=== PATIENT | male | born 1980 | race Caucasian/White ===

== ENCOUNTER 2017-01-07 17:32 | Emergency (ER) | payer MEDICARE, MEDICAID ==
[~2017-01-07] VITALS: Ht 180.3 cm; Wt 74.1 kg
[~2017-01-07 17:32] MED LIST: AMOXICILLIN 8751 TAB PO; APRESOLINE50 MG PO; ASPI325T6 PO; ASPIRIN 32325 MG/TAB PO; ATARAX 25MG25 MG/TAB PO; BACTRIM 400 MG-1 TAB PO; BACTRIM DS 8001 TA1 PO; BACTRIM DS 8001 TAB PO; BENADRYL25 M2 PO; BENTYL 10MG10 MG/CAP PO; CATAPRES 0.1MG0.1 MG PO; CELEXA 20MG20 MG/TAB PO; CEPHALEXIN500 M1 PO; CHANTIX 1MG1 MG PO; CIPRO 500MG TA500 MG PO; CLEOCIN HC150 MG/CAP PO; COLACE 100100 MG/CAP PO; CUBICIN 500MG500 MG IV; CYMBALTA 60MG60 MG PO; DAZIDOX10 MG PO; DEMADEX100 MG PO; DESYREL 50MG50 MG PO; DOXYCYCLINE 10100 MG PO; EXCEDRIN1 TAB PO; FENTANYL 50MCG TD; FERROUS SU325 MG/TAB PO; FLAGYL500 MG PO; FLEXERIL 1010 MG/TAB PO; FLEXERIL10 MG PO; INSLANT SQ; INSULIN HUMA100 U/ML IJ; IRON325 M1 PO; K-DUR 10 MEQ T10 MEQ PO; LANTUS SOLOS100 U/ML SC; LANTUS100 U/ML; LANTUS100 U/ML SC; LEVAQUIN 2250 MG/TAB PO; LEVAQUIN 5500 MG/TA1 PO; LEVAQUIN 750MG750 M1 PO; LEVEMIR SQ; LEVEMIR100 U/ML SQ; LIPITOR20 MG PO; LOPRESSOR 225 MG/TAB PO; LOPRESSOR 550 MG/TAB PO; LORTAB 10/500 51 TAB PO; LOVENOX 3030 MG/0.3 SQ; LYRICA 50MG CAP50 MG PO; METHADONE H10 MG/TAB PO; NAPROSYN PO; NAPROSYN500 MG PO; NEURONTIN100 MG/CAP PO; NEURONTIN400 MG/CAP PO; NEURONTIN600 MG/TAB PO; NORCO 325 MG-101 TAB PO; NORCO 325 MG-51 TAB PO; NORCO 325 MG-7.1 TAB PO; NORVASC 10MG10 MG PO; NORVASC 5MG5 MG/TAB PO; NOVLOG SC; NOVLOG SQ; NOVOLOG 100U100 U/M1 SC; NOVOLOG 100U100 U/M1 SQ; NOVOLOG 100U100 U/ML SQ; OXYCONTIN 10MG10 MG PO; OXYCONTIN40 MG PO; PEN-VEE K500 MG PO; PERCOCET 325 MG1 TA2 PO; PERCOCET 325 MG1 TAB PO; PERCOCET 5/321 UDTAB PO; PERCR 7.5 PO; PHENERGAN 25 TA25 MG PO; PHENERGAN25 MG RC; PHENERGAN25 MG/ML IM; PLAVIX 75MG TAB75 MG PO; PREDNISONE20 MG PO; PRIL40 PO; PRILOSEC 20MG20 MG PO; PRINIVIL10 MG PO; PRINIVIL20 MG PO; PROMETHAZINE12.5 M5 PO; PROZAC20 MG PO; PYRIDIUM200 M1; PYRIDIUM200 M1 PO; REGLAN 10MG10 MG/TAB PO; RIFADIN300 MG PO; ROBAXIN 75750 MG/TAB PO; ROXICODONE 55 MG/TAB PO; ROXICODONE15 MG PO; SEPTRA DS 8001 TAB PO; TAMIFLU 75MG75 MG PO; TENORMIN 2525 MG/TAB PO; TENORMIN 5050 MG/TAB PO; TYLENOL 325MG325 MG PO; ULTRAM 50MG TAB50 MG PO; VENTOLIN0.09 MG IH; WELLBUTRIN SR100 M1 PO; ZESTRIL 20MG TA20 MG PO; ZOFRAN 4MG T4 MG/TAB PO; ZOFRAN ODT4 MG PO; ZYRTEC 10MG10 MG PO
[2017-01-07 17:35] VITALS: TEMP 97.8
[2017-01-07] MEDS ORDERED: MS CONTIN 115 MG/TAB PO (17:53)
[2017-01-07] MEDS ORDERED: LEXAPRO 10MG10 MG PO (17:53)
[2017-01-07] MEDS ORDERED: PROTONIX 40MG T40 MG PO (17:53)
[2017-01-07] MEDS ORDERED: FOLIC ACID 11 MG/TA1 PO (17:54)
[2017-01-07] MEDS ORDERED: LIPITOR 80MG80 MG PO (17:54)
[2017-01-07] MEDS ORDERED: HYDRALAZINE HC100 MG PO (17:54)
[2017-01-07] MEDS ORDERED: OSCAL 500 TAB500 MG PO (17:54)
[2017-01-07] MEDS ORDERED: COREG 25MG25 MG/TAB PO (17:58)
[2017-01-07] MEDS ORDERED: PLAVIX 75MG TAB75 MG PO (17:58)
[2017-01-07] MEDS ORDERED: ASPIRIN 81M81 MG/TA2 PO (17:58)
[2017-01-07] MEDS ORDERED: SENOKOT S 50 MG1 TAB PO (17:58)
[2017-01-07] MEDS ORDERED: ROXICODONE15 MG PO (17:59)
[2017-01-07] MEDS ORDERED: FERROUS SU325 MG/TAB PO (17:59)
[2017-01-07] MEDS ORDERED: CATAPRES 0.1MG0.1 MG PO (17:59)
[2017-01-07] MEDS ORDERED: SEROQUEL50 MG PO (17:59)
[2017-01-07] MEDS ORDERED: ALDACTONE 25MG25 M1 PO (18:00)
[2017-01-07 18:18] LABS: BASO # 0.1 (0.0-0.2); BASO % 0.6 % (0.0-2.0); EOS # 0.4 (0.0-0.7); EOS % 4.9 % (0-4.0); GRAN # 6.1 (1.4-6.5); GRAN % 68.3 % (42.2-75.2); LYMPH # 1.7 (1.2-3.4); LYMPH % 18.5 % (20.0-51.0); MEAN CELL VOLUME 86 fl (80.0-100.0); MEAN CORPUSCULAR HGB CONC 33 g/dl (33.0-37.0); MEAN PLATELET VOLUME 9.2 fl (7.4-10.4); MONO # 0.7 (0.1-0.6); MONO % 7.5 % (1.7-9.3); PLATELET COUNT 339 K/mm3 (130-400); RED BLOOD COUNT 3.44 M/mm3 (4.20-5.60); REDCELL DISTRIBUTION WIDTH-CV 13.5 % (11.5-14.5)
[2017-01-07 18:20] LABS: HEMATOCRIT 29.4 % (42.0-52.0); HEMOGLOBIN 9.6 g/dl (13.5-18.0); MEAN CORPUSCULAR HEMOGLOBIN 28 pg (27.0-31.0)
[2017-01-07 18:21] LABS: INR 1.2 (0.8-3.0); PROTHROMBIN TIME 13.6 SECONDS (9.7-12.8)
[2017-01-07 18:26] LABS: ADJUSTED CALCIUM 9.9 mg/dL (8.4-10.2); ALANINE AMINOTRANSFERASE 20 U/L (21-72); ALBUMIN 3.1 gm/dL (3.5-5.0); ALKALINE PHOSPHATASE 83 U/L (50-136); ANION GAP 9 mmol/L (7-16); BILIRUBIN,TOTAL 0.5 mg/dL (0.0-1.0); BLOOD UREA NITROGEN 45 mg/dL (9-20); C-REACTIVE PROTEIN 7.8 mg/dL (0.0-0.9); CALCIUM 9.2 mg/dL (8.4-10.2); CARBON DIOXIDE 21 mmol/L (22-30); CHLORIDE 100 mmol/L (98-107); CREATININE, serum 2.76 mg/dL (0.66-1.25); GLUCOSE 108 mg/dL (74-106); PHOSPHOROUS 5.1 mg/dL (2.5-4.5); POTASSIUM 4.6 mmol/L (3.4-5.0); SODIUM 129 mmol/L (137-145); TOTAL PROTEIN 6.7 gm/dL (6.4-8.2)
[2017-01-07 18:39] LABS: TROPONIN-I < 0.012 ng/mL (0.000-0.034)
[2017-01-07 20:45] VITALS: BP 161/90; PULSE 73
[2017-06-17] MEDS ORDERED: MINOXIDIL 10 PO (14:18)
[2017-06-17] MEDS ORDERED: LASIX 40MG TABL40 MG PO (14:18)
[2017-06-17] MEDS ORDERED: ABILIFY5 MG PO (14:19)
[2017-06-17] MEDS ORDERED: THORAZINE 225 MG/TAB PO (14:19)
[2017-06-17] MEDS ORDERED: MS CONTIN 330 MG/TAB PO (14:19)
[2017-06-17] MEDS ORDERED: HETLIOZ20 MG PO (14:20)
[2017-06-17] MEDS ORDERED: MELATONIN5 M1 PO (14:20)
[2017-06-17] MEDS ORDERED: BUSPAR5 MG PO (14:21)
[2017-06-17] MEDS ORDERED: REGLAN 10MG10 MG/TAB PO (14:21)
[2017-06-17] MEDS ORDERED: NATURAL IRON65 MG (14:22)
[2017-06-17] MEDS ORDERED: SEROQUEL50 MG PO (14:22)
[2017-06-17] MEDS ORDERED: CALCITRIOL PO (14:24)
[2017-06-17] MEDS ORDERED: BRINTELLIX20 PO (14:24)
[2017-06-17] MEDS ORDERED: ZOFRAN 4MG T4 MG/TAB PO (14:25)
[2017-06-17] MEDS ORDERED: CHANTIX START M1 TAB PO (14:25)
[2017-06-17] MEDS ORDERED: APRESOLINE 10MG10 MG PO (14:26)
[2017-06-17] MEDS ORDERED: KLONOPIN 0.5MG0.5 MG PO (14:29)
[2017-06-17] MEDS ORDERED: CATAPRES 0.1MG0.1 MG PO (14:30)
[2017-07-21] MEDS ORDERED: HYDRALAZINE HC100 MG PO (13:33)
[2017-07-21] MEDS ORDERED: MELATONIN1 MG PO (13:33)
[2017-07-21] MEDS ORDERED: FOLIC ACID 11 MG/TA1 PO (13:34)
[2017-07-21] MEDS ORDERED: IRON 27 MG PO (13:35)
[2017-07-21] MEDS ORDERED: DULCOLAX S10 MG/SUPP RC (13:35)
[2017-07-21] MEDS ORDERED: TYLENOL 325MG325 MG PO (13:35)
[2017-07-21] MEDS ORDERED: THORAZINE 225 MG/TAB PO (13:36)
[2017-07-21] MEDS ORDERED: COLACE 100100 MG/CAP PO (13:37)
[2017-07-21] MEDS ORDERED: BUSPAR5 MG PO (13:38)
[2017-07-21] MEDS ORDERED: LEXAPRO20 MG PO (13:38)
[2017-07-21] MEDS ORDERED: MIRALAX PA17 GM/Dose PO (13:43)
[2017-07-21] MEDS ORDERED: SENOKOT8.6 MG PO (13:44)
[2017-07-21] MEDS ORDERED: ALDACTONE 25MG25 M1 PO (13:44)
[2017-07-21] MEDS ORDERED: FERROUS GL325 MG/TAB PO (13:45)
== END 2017-01-07 20:49 | disposition home or self-care (01) ==
LOC: COL.ER 17:32
PROVIDERS: Family Medicine
DX: I12.9 Hypertensive chronic kidney disease with stage 1 through stage 4 chronic kidney disease, or unspecified chronic kidney disease (principal); N18.4 Chronic kidney disease, stage 4 (severe); E10.22 Type 1 diabetes mellitus with diabetic chronic kidney disease; Z89.511 Acquired absence of right leg below knee; Z79.02 Long term (current) use of antithrombotics/antiplatelets; R40.0 Somnolence

== ENCOUNTER → 2017-05-02 | Outpatient (CLI) | payer MEDICARE, MEDICAID ==
[~2017-05-02] MED LIST changes: +ABILIFY5 MG PO; +ALDACTONE 25MG25 M1 PO; +APRESOLINE 10MG10 MG PO; +ASPIRIN 81M81 MG/TA2 PO; +BRINTELLIX20 PO; +BUSPAR5 MG PO; +CALCITRIOL PO; +CHANTIX START M1 TAB PO; +COREG 25MG25 MG/TAB PO; +DULCOLAX S10 MG/SUPP RC; +FERROUS GL325 MG/TAB PO; +FLOMAX 0.40.4 MG/CAP PO; +FOLIC ACID 11 MG/TA1 PO; +HETLIOZ20 MG PO; +HYDRALAZINE HC100 MG PO; +IRON 27 MG PO; +KLONOPIN 0.5MG0.5 MG PO; +LANTUS SOLOS100 U/ML SQ; +LASIX 40MG TABL40 MG PO; +LEXAPRO 10MG10 MG PO; +LEXAPRO20 MG PO; +LIPITOR 80MG80 MG PO; +MELATONIN1 MG PO; +MELATONIN5 M1 PO; +MINOXIDIL 10 PO; +MIRALAX PA17 GM/Dose PO; +MS CONTIN 115 MG/TAB PO; +MS CONTIN 330 MG/TAB PO; +NATURAL IRON65 MG; +NOVOLOG FLEX100 U/ML SQ; +OSCAL 500 TAB500 MG PO; +PROTONIX 40MG T40 MG PO; +SENOKOT S 50 MG1 TAB PO; +SENOKOT8.6 MG PO; +SEROQUEL50 MG PO; +THORAZINE 225 MG/TAB PO
== END ==
LOC: BHSO 12:44
DX: F06.32 Mood disorder due to known physiological condition with major depressive-like episode (principal)
CPT/HCPCS: 90791-AI

== ENCOUNTER → 2017-06-17 | Outpatient (CLI) | payer MEDICARE, MEDICAID ==
[~2017-06-17] VITALS: Ht 180.3 cm; Wt 81.4 kg
[2017-06-17 14:04] VITALS: BP 142/67; PULSE 86; TEMP 98.4
== END ==
LOC: EUO 06-16 14:00
DX: N18.4 Chronic kidney disease, stage 4 (severe) (principal); D63.1 Anemia in chronic kidney disease; Z79.899 Other long term (current) drug therapy
CPT/HCPCS: J0881

== ENCOUNTER → 2017-06-30 | Outpatient (CLI) | payer MEDICARE, MEDICAID | LOC: BHSO 15:02 | DX: F06.32 Mood disorder due to known physiological condition with major depressive-like episode (principal) ==

== ENCOUNTER 2017-07-08 14:21 | Emergency (ER) | payer MEDICARE, MEDICAID ==
[~2017-07-08] VITALS: Ht 175.3 cm; Wt 77.3 kg
[~2017-07-08 14:21] MED LIST changes: -DULCOLAX S10 MG/SUPP RC; -FERROUS GL325 MG/TAB PO; -FLOMAX 0.40.4 MG/CAP PO; -IRON 27 MG PO; -LANTUS SOLOS100 U/ML SQ; -LEXAPRO20 MG PO; -MELATONIN1 MG PO; -MIRALAX PA17 GM/Dose PO; -NOVOLOG FLEX100 U/ML SQ; -SENOKOT8.6 MG PO
[2017-07-08 14:23] VITALS: TEMP 97.9
[2017-07-08] MEDS ORDERED: NOVOLOG FLEX100 U/ML SQ (14:49)
[2017-07-08] MEDS ORDERED: LANTUS SOLOS100 U/ML SQ (14:49)
[2017-07-08 15:22] LABS: BASO # 0.1 (0.0-0.2); EOS # 0.5 (0.0-0.7); EOS % 7.9 % (0-4.0); GRAN # 4.1 (1.4-6.5); GRAN % 66.4 % (42.2-75.2); LYMPH # 1.1 (1.2-3.4); LYMPH % 17.3 % (20.0-51.0); MEAN CELL VOLUME 85 fl (80.0-100.0); MEAN CORPUSCULAR HGB CONC 35 g/dl (33.0-37.0); MEAN PLATELET VOLUME 9.5 fl (7.4-10.4); MONO # 0.4 (0.1-0.6); MONO % 7.2 % (1.7-9.3); PLATELET COUNT 211 K/mm3 (130-400); RED BLOOD COUNT 3.61 M/mm3 (4.20-5.60); REDCELL DISTRIBUTION WIDTH-CV 13.2 % (11.5-14.5); WHITE BLOOD COUNT 6.1 K/mm3 (4.8-10.8)
[2017-07-08 15:25] LABS: HEMATOCRIT 30.5 % (42.0-52.0); HEMOGLOBIN 10.6 g/dl (13.5-18.0); MEAN CORPUSCULAR HEMOGLOBIN 29 pg (27.0-31.0)
[2017-07-08 15:28] LABS: VENOUS BLOOD GAS BE 2.2 (-4-4); VENOUS BLOOD GAS SAO2 66.8 % (60-80)
[2017-07-08 15:29] LABS: VENOUS BLOOD GAS SITE VENIPUNCTURE
[2017-07-08 15:39] LABS: ADJUSTED CALCIUM 9.2 mg/dL (8.4-10.2); ALANINE AMINOTRANSFERASE 36 U/L (21-72); ALKALINE PHOSPHATASE 77 U/L (50-136); ANION GAP 11 mmol/L (7-16); BILIRUBIN,TOTAL 0.5 mg/dL (0.0-1.0); BLOOD UREA NITROGEN 45 mg/dL (9-20); CALCIUM 9.2 mg/dL (8.4-10.2); CARBON DIOXIDE 25 mmol/L (22-30); CHLORIDE 99 mmol/L (98-107); CREATININE, serum 3.31 mg/dL (0.66-1.25); GLUCOSE 145 mg/dL (74-106); LIPASE 91 U/L (23-300); POTASSIUM 4.2 mmol/L (3.4-5.0); SODIUM 135 mmol/L (137-145); TOTAL PROTEIN 6.9 gm/dL (6.4-8.2)
[2017-07-08 15:41] LABS: C-REACTIVE PROTEIN < 0.5 mg/dL (0.0-0.9)
[2017-07-08 16:01] LABS: TROPONIN-I < 0.012 ng/mL (0.000-0.034)
[2017-07-08 16:40] LABS: PH 7 (5-8); SQUAMOUS EPITHELIAL None Seen /hpf; URINE APPEARANCE Clear; URINE BACTERIA None Seen /hpf; URINE BILIRUBIN Negative (NEGATIVE); URINE BLOOD Negative (NEGATIVE); URINE COLOR Yellow; URINE GLUCOSE 1+ (NEGATIVE); URINE KETONE Negative (NEGATIVE); URINE RBC 0-2 /hpf; URINE UROBILINOGEN Negative (NEGATIVE); URINE WBC 0-2 /hpf
[2017-07-08 18:44] VITALS: BP 185/109; PULSE 92
[2017-07-08] MEDS ORDERED: FLOMAX 0.40.4 MG/CAP PO (18:53)
[2017-07-21] MEDS ORDERED: HYDRALAZINE HC100 MG PO (13:33)
[2017-07-21] MEDS ORDERED: MELATONIN1 MG PO (13:33)
[2017-07-21] MEDS ORDERED: FOLIC ACID 11 MG/TA1 PO (13:34)
[2017-07-21] MEDS ORDERED: TYLENOL 325MG325 MG PO (13:35)
[2017-07-21] MEDS ORDERED: IRON 27 MG PO (13:35)
[2017-07-21] MEDS ORDERED: DULCOLAX S10 MG/SUPP RC (13:35)
[2017-07-21] MEDS ORDERED: THORAZINE 225 MG/TAB PO (13:36)
[2017-07-21] MEDS ORDERED: COLACE 100100 MG/CAP PO (13:37)
[2017-07-21] MEDS ORDERED: LEXAPRO20 MG PO (13:38)
[2017-07-21] MEDS ORDERED: BUSPAR5 MG PO (13:38)
[2017-07-21] MEDS ORDERED: MIRALAX PA17 GM/Dose PO (13:43)
[2017-07-21] MEDS ORDERED: ALDACTONE 25MG25 M1 PO (13:44)
[2017-07-21] MEDS ORDERED: SENOKOT8.6 MG PO (13:44)
[2017-07-21] MEDS ORDERED: FERROUS GL325 MG/TAB PO (13:45)
== END 2017-07-08 19:15 | disposition home or self-care (01) ==
LOC: COL.ER 14:21
PROVIDERS: Emergency Medicine
DX: N19 Unspecified kidney failure (principal); K59.00 Constipation, unspecified; E10.9 Type 1 diabetes mellitus without complications; I10 Essential (primary) hypertension; E78.5 Hyperlipidemia, unspecified; K21.9 Gastro-esophageal reflux disease without esophagitis; F32.9 Major depressive disorder, single episode, unspecified; I69.398 Other sequelae of cerebral infarction; H54.0 Blindness, both eyes; Z89.511 Acquired absence of right leg below knee; Z90.49 Acquired absence of other specified parts of digestive tract; Z87.891 Personal history of nicotine dependence; Z79.82 Long term (current) use of aspirin
CPT/HCPCS: J1170; J2405; J7030

== ENCOUNTER 2017-07-15 12:51 | Emergency (ER) | payer MEDICARE, MEDICAID ==
[~2017-07-15] VITALS: Ht 177.8 cm; Wt 77.3 kg
[~2017-07-15 12:51] MED LIST changes: +FLOMAX 0.40.4 MG/CAP PO; +LANTUS SOLOS100 U/ML SQ; +NOVOLOG FLEX100 U/ML SQ
[2017-07-15 12:53] VITALS: TEMP 98.6
[2017-07-15 15:24] LABS: BASO % 0.3 % (0.0-2.0); EOS # 0.7 (0.0-0.7); EOS % 5.2 % (0-4.0); GRAN # 10.1 (1.4-6.5); GRAN % 77.8 % (42.2-75.2); LYMPH # 1.3 (1.2-3.4); LYMPH % 10.1 % (20.0-51.0); MEAN CELL VOLUME 87 fl (80.0-100.0); MEAN CORPUSCULAR HGB CONC 34 g/dl (33.0-37.0); MEAN PLATELET VOLUME 10.1 fl (7.4-10.4); MONO # 0.8 (0.1-0.6); MONO % 6.1 % (1.7-9.3); PLATELET COUNT 175 K/mm3 (130-400); RED BLOOD COUNT 2.95 M/mm3 (4.20-5.60); REDCELL DISTRIBUTION WIDTH-CV 13.4 % (11.5-14.5)
[2017-07-15 15:32] LABS: HEMATOCRIT 25.7 % (42.0-52.0); HEMOGLOBIN 8.8 g/dl (13.5-18.0); MEAN CORPUSCULAR HEMOGLOBIN 30 pg (27.0-31.0)
[2017-07-15 15:34] LABS: ADJUSTED CALCIUM 8.9 mg/dL (8.4-10.2); BILIRUBIN,TOTAL 0.4 mg/dL (0.0-1.0); CALCIUM 8.9 mg/dL (8.4-10.2); CREATININE, serum 2.7 mg/dL (0.66-1.25); POTASSIUM 4.9 mmol/L (3.4-5.0); TOTAL PROTEIN 6.9 gm/dL (6.4-8.2)
[2017-07-15 16:15] LABS: C-REACTIVE PROTEIN 11.8 mg/dL (0.0-0.9)
[2017-07-15] MEDS ORDERED: LEVAQUIN 750MG750 M1 PO (17:05)
[2017-07-15 17:13] VITALS: BP 182/98; PULSE 80
[2017-07-21] MEDS ORDERED: MELATONIN1 MG PO (13:33)
[2017-07-21] MEDS ORDERED: HYDRALAZINE HC100 MG PO (13:33)
[2017-07-21] MEDS ORDERED: FOLIC ACID 11 MG/TA1 PO (13:34)
[2017-07-21] MEDS ORDERED: TYLENOL 325MG325 MG PO (13:35)
[2017-07-21] MEDS ORDERED: IRON 27 MG PO (13:35)
[2017-07-21] MEDS ORDERED: DULCOLAX S10 MG/SUPP RC (13:35)
[2017-07-21] MEDS ORDERED: THORAZINE 225 MG/TAB PO (13:36)
[2017-07-21] MEDS ORDERED: COLACE 100100 MG/CAP PO (13:37)
[2017-07-21] MEDS ORDERED: BUSPAR5 MG PO (13:38)
[2017-07-21] MEDS ORDERED: LEXAPRO20 MG PO (13:38)
[2017-07-21] MEDS ORDERED: MIRALAX PA17 GM/Dose PO (13:43)
[2017-07-21] MEDS ORDERED: ALDACTONE 25MG25 M1 PO (13:44)
[2017-07-21] MEDS ORDERED: SENOKOT8.6 MG PO (13:44)
[2017-07-21] MEDS ORDERED: FERROUS GL325 MG/TAB PO (13:45)
== END 2017-07-15 17:15 | disposition home or self-care (01) ==
LOC: COL.ER 12:51
PROVIDERS: Nurse Practitioner
DX: J84.9 Interstitial pulmonary disease, unspecified (principal); E87.1 Hypo-osmolality and hyponatremia; M54.2 Cervicalgia; G89.29 Other chronic pain; E10.10 Type 1 diabetes mellitus with ketoacidosis without coma; F32.9 Major depressive disorder, single episode, unspecified; F17.210 Nicotine dependence, cigarettes, uncomplicated; Z89.421 Acquired absence of other right toe(s); Z79.82 Long term (current) use of aspirin; Z79.4 Long term (current) use of insulin

== ENCOUNTER 2017-09-27 02:55 | Emergency (ER) | payer MEDICARE, MEDICAID ==
[~2017-09-27] VITALS: Ht 180.3 cm; Wt 77.3 kg
[~2017-09-27 02:55] MED LIST changes: +DULCOLAX S10 MG/SUPP RC; +FERROUS GL325 MG/TAB PO; +IRON 27 MG PO; +LEXAPRO20 MG PO; +MELATONIN1 MG PO; +MIRALAX PA17 GM/Dose PO; +SENOKOT8.6 MG PO
[2017-09-27 03:01] VITALS: TEMP 97.3
[2017-09-27 03:42] LABS: BASO # 0.1 (0.0-0.2); BASO % 0.6 % (0.0-2.0); EOS # 0.9 (0.0-0.7); EOS % 4.5 % (0-4.0); GRAN # 15.1 (1.4-6.5); GRAN % 79.2 % (42.2-75.2); LYMPH # 1.7 (1.2-3.4); LYMPH % 8.9 % (20.0-51.0); MEAN CELL VOLUME 91 fl (80.0-100.0); MEAN CORPUSCULAR HGB CONC 34 g/dl (33.0-37.0); MONO # 1.2 (0.1-0.6); MONO % 6.3 % (1.7-9.3); PLATELET COUNT 206 K/mm3 (130-400); RED BLOOD COUNT 3.28 M/mm3 (4.20-5.60); WHITE BLOOD COUNT 19.1 K/mm3 (4.8-10.8)
[2017-09-27 03:43] LABS: HEMATOCRIT 29.8 % (42.0-52.0); HEMOGLOBIN 10.1 g/dl (13.5-18.0); MEAN CORPUSCULAR HEMOGLOBIN 31 pg (27.0-31.0)
[2017-09-27 03:55] LABS: ADJUSTED CALCIUM 8.9 mg/dL (8.4-10.2); ALBUMIN 4.3 gm/dL (3.5-5.0); BILIRUBIN,TOTAL 0.4 mg/dL (0.0-1.0); CALCIUM 9.1 mg/dL (8.4-10.2); CREATININE, serum 2.51 mg/dL (0.66-1.25); MAGNESIUM 2.3 mg/dL (1.6-2.3); PHOSPHOROUS 4.5 mg/dL (2.5-4.5); POTASSIUM 3.3 mmol/L (3.4-5.0); TOTAL PROTEIN 6.8 gm/dL (6.4-8.2)
[2017-09-27 06:15] VITALS: BP 144/91; PULSE 70
== END 2017-09-27 06:20 | disposition home or self-care (01) ==
LOC: COL.ER 02:55
PROVIDERS: Emergency Medicine
DX: E10.649 Type 1 diabetes mellitus with hypoglycemia without coma (principal); E10.22 Type 1 diabetes mellitus with diabetic chronic kidney disease; N18.9 Chronic kidney disease, unspecified; Z89.511 Acquired absence of right leg below knee; Z79.82 Long term (current) use of aspirin

== ENCOUNTER 2018-01-02 15:19 | Emergency (ER) | payer MEDICARE, MEDICAID ==
[~2018-01-02] VITALS: Ht 177.8 cm; Wt 81.8 kg
[2018-01-02 15:47] VITALS: TEMP 97.8
[2018-01-02] MEDS ORDERED: CEPHALEXIN500 M1 PO (17:33)
[2018-01-02] MEDS ORDERED: BACTRIM DS 8001 TAB PO (17:33)
[2018-01-02 17:54] VITALS: BP 121/77; PULSE 90
== END 2018-01-02 17:56 | disposition home or self-care (01) ==
LOC: COL.ER 15:19
DX: L03.116 Cellulitis of left lower limb (principal); E10.9 Type 1 diabetes mellitus without complications; I10 Essential (primary) hypertension; E78.00 Pure hypercholesterolemia, unspecified; F17.210 Nicotine dependence, cigarettes, uncomplicated; Z89.511 Acquired absence of right leg below knee; Z79.82 Long term (current) use of aspirin

== ENCOUNTER 2018-01-12 15:31 | Inpatient (IN) | payer MEDICARE, MEDICAID ==
[~2018-01-12] VITALS: Ht 170.2 cm; Wt 84.2 kg
[2018-01-12 16:13] LABS: BASO # 0.1 (0.0-0.2); BASO % 0.5 % (0.0-2.0); EOS # 0.2 (0.0-0.7); EOS % 2.3 % (0-4.0); GRAN % 84.6 % (42.2-75.2); LYMPH # 0.7 (1.2-3.4); LYMPH % 6.7 % (20.0-51.0); MEAN CELL VOLUME 88 fl (80.0-100.0); MEAN CORPUSCULAR HGB CONC 35 g/dl (33.0-37.0); MEAN PLATELET VOLUME 9.9 fl (7.4-10.4); MONO # 0.6 (0.1-0.6); MONO % 5.4 % (1.7-9.3); PLATELET COUNT 188 K/mm3 (130-400); RED BLOOD COUNT 2.49 M/mm3 (4.20-5.60); REDCELL DISTRIBUTION WIDTH-CV 12.8 % (11.5-14.5)
[2018-01-12 16:15] LABS: HEMATOCRIT 21.9 % (42.0-52.0); HEMOGLOBIN 7.6 g/dl (13.5-18.0); MEAN CORPUSCULAR HEMOGLOBIN 31 pg (27.0-31.0)
[2018-01-12 16:20] LABS: ALBUMIN 3.9 gm/dL (3.5-5.0); BILIRUBIN,TOTAL 0.3 mg/dL (0.0-1.0); C-REACTIVE PROTEIN 1.5 mg/dL (0.0-0.9); CALCIUM 8.9 mg/dL (8.4-10.2); CREATININE, serum 3.75 mg/dL (0.66-1.25)
[2018-01-12 18:40] LABS: COLLECTION METHOD CATHETER
[2018-01-12 18:58] LABS: MUCOUS Present /lpf; PH 5 (5-8); SQUAMOUS EPITHELIAL 0-2 /hpf; URINE APPEARANCE Cloudy; URINE BACTERIA Rare /hpf; URINE BILIRUBIN Negative (NEGATIVE); URINE BLOOD 1+ (NEGATIVE); URINE COLOR Yellow; URINE GLUCOSE 1+ (NEGATIVE); URINE KETONE Negative (NEGATIVE); URINE LEUKOCYTE ESTERASE Negative (NEGATIVE); URINE NITRATE Negative (NEGATIVE); URINE PROTEIN(semi-quant) 2+ (NEGATIVE); URINE UROBILINOGEN Negative (NEGATIVE)
[2018-01-12 20:38] VITALS: BP 160/67; PULSE 88; TEMP 97.7
[2018-01-12 23:51] VITALS: BP 179/81; PULSE 79; TEMP 98.1
[2018-01-13] VITALS (12 sets, daily range): BP systolic 137–176; BP diastolic 66–86; PULSE 74–80; TEMP 97.6–98.5
[2018-01-13 07:08] LABS: BASO # 0.1 (0.0-0.2); BASO % 0.9 % (0.0-2.0); EOS # 0.4 (0.0-0.7); EOS % 7.8 % (0-4.0); GRAN % 53.6 % (42.2-75.2); LYMPH # 1.5 (1.2-3.4); MEAN CELL VOLUME 89 fl (80.0-100.0); MEAN CORPUSCULAR HGB CONC 34 g/dl (33.0-37.0); MEAN PLATELET VOLUME 9.8 fl (7.4-10.4); MONO # 0.6 (0.1-0.6); MONO % 11.3 % (1.7-9.3); PLATELET COUNT 161 K/mm3 (130-400); RED BLOOD COUNT 2.21 M/mm3 (4.20-5.60); REDCELL DISTRIBUTION WIDTH-CV 12.8 % (11.5-14.5)
[2018-01-13 07:15] LABS: CALCIUM 8.6 mg/dL (8.4-10.2); CREATININE, serum 3.8 mg/dL (0.66-1.25); POTASSIUM 3.7 mmol/L (3.4-5.0)
[2018-01-13 07:19] LABS: HEMATOCRIT 19.6 % (42.0-52.0); HEMOGLOBIN 6.6 g/dl (13.5-18.0); MEAN CORPUSCULAR HEMOGLOBIN 30 pg (27.0-31.0)
[2018-01-13 19:35] LABS: HEMATOCRIT 22.6 % (42.0-52.0); HEMOGLOBIN 7.7 g/dl (13.5-18.0)
[2018-01-14 04:34] VITALS: BP 189/87; PULSE 76; TEMP 98.3
[2018-01-14 06:20] LABS: BASO % 0.7 % (0.0-2.0); EOS # 0.5 (0.0-0.7); EOS % 8.8 % (0-4.0); GRAN # 2.8 (1.4-6.5); GRAN % 52.4 % (42.2-75.2); LYMPH # 1.4 (1.2-3.4); LYMPH % 26.5 % (20.0-51.0); MEAN CELL VOLUME 87 fl (80.0-100.0); MEAN CORPUSCULAR HGB CONC 34 g/dl (33.0-37.0); MEAN PLATELET VOLUME 10.2 fl (7.4-10.4); MONO # 0.6 (0.1-0.6); MONO % 11.4 % (1.7-9.3); PLATELET COUNT 173 K/mm3 (130-400); RED BLOOD COUNT 2.62 M/mm3 (4.20-5.60); REDCELL DISTRIBUTION WIDTH-CV 13.8 % (11.5-14.5)
[2018-01-14 06:41] LABS: CALCIUM 8.2 mg/dL (8.4-10.2); CREATININE, serum 3.41 mg/dL (0.66-1.25); HEMATOCRIT 22.8 % (42.0-52.0); HEMOGLOBIN 7.7 g/dl (13.5-18.0); MEAN CORPUSCULAR HEMOGLOBIN 29 pg (27.0-31.0); POTASSIUM 3.9 mmol/L (3.4-5.0)
[2018-01-14 08:33] VITALS: BP 180/88; PULSE 78; TEMP 99.1
[2018-01-14 09:00] VITALS: BP 180/88; PULSE 78; TEMP 99.1
== END 2018-01-14 13:44 | disposition home health service (06) | DRG 699 ==
LOC: COL.ER 15:31 → MEDICAL 17:23 → EDBEDREQ 17:54 → MEDICAL 01-13 10:31
PROVIDERS: Emergency Medicine; Nurse Practitioner; Physician Assistant
DX: N31.2 Flaccid neuropathic bladder, not elsewhere classified (principal); N13.8 Other obstructive and reflux uropathy; N17.9 Acute kidney failure, unspecified; E87.1 Hypo-osmolality and hyponatremia; N13.9 Obstructive and reflux uropathy, unspecified; I12.9 Hypertensive chronic kidney disease with stage 1 through stage 4 chronic kidney disease, or unspecified chronic kidney disease; E11.22 Type 2 diabetes mellitus with diabetic chronic kidney disease; N18.3 Chronic kidney disease, stage 3 (moderate); D63.1 Anemia in chronic kidney disease; Z89.511 Acquired absence of right leg below knee; Z79.4 Long term (current) use of insulin; F17.210 Nicotine dependence, cigarettes, uncomplicated; G89.29 Other chronic pain; H54.8 Legal blindness, as defined in USA
CPT/HCPCS: 99222-AI; 99239; G0378; J0881; J1644; J1815; J7030; P9016

== ENCOUNTER 2018-01-27 20:46 | Emergency (ER) | payer MEDICARE, MEDICAID ==
[~2018-01-27] VITALS: Ht 177.8 cm; Wt 81.8 kg
[2018-01-27 20:56] VITALS: TEMP 98.6
[2018-01-27 21:50] VITALS: BP 161/97; PULSE 73
== END 2018-01-27 21:50 | disposition home or self-care (01) ==
LOC: COL.ER 20:46
DX: Z46.6 Encounter for fitting and adjustment of urinary device (principal); E10.29 Type 1 diabetes mellitus with other diabetic kidney complication; I10 Essential (primary) hypertension; N19 Unspecified kidney failure

== ENCOUNTER 2018-02-24 08:19 | Day surgery (SDC) | payer MEDICARE, MEDICAID ==
[~2018-02-24] VITALS: Ht 177.8 cm; Wt 81.8 kg
[2018-02-24] VITALS (7 sets, daily range): BP systolic 166–204; BP diastolic 77–104; PULSE 70–77; TEMP 97.9–98
[2018-02-24 09:26] LABS: BASO # 0.1 (0.0-0.2); BASO % 0.9 % (0.0-2.0); EOS # 1.5 (0.0-0.7); EOS % 15.2 % (0-4.0); GRAN # 5.5 (1.4-6.5); GRAN % 57.1 % (42.2-75.2); LYMPH # 1.9 (1.2-3.4); LYMPH % 19.3 % (20.0-51.0); MEAN CELL VOLUME 86 fl (80.0-100.0); MEAN CORPUSCULAR HGB CONC 35 g/dl (33.0-37.0); MEAN PLATELET VOLUME 10.1 fl (7.4-10.4); MONO # 0.7 (0.1-0.6); MONO % 7.3 % (1.7-9.3); PLATELET COUNT 188 K/mm3 (130-400); RED BLOOD COUNT 3.38 M/mm3 (4.20-5.60); REDCELL DISTRIBUTION WIDTH-CV 13.7 % (11.5-14.5)
[2018-02-24 09:27] LABS: HEMOGLOBIN 10.1 g/dl (13.5-18.0); MEAN CORPUSCULAR HEMOGLOBIN 30 pg (27.0-31.0)
[2018-02-24 09:30] LABS: INR 1.1 (0.8-3.0); PROTHROMBIN TIME 12.5 SECONDS (9.7-12.8)
[2018-02-24 09:33] LABS: CALCIUM 8.9 mg/dL (8.4-10.2); CREATININE, serum 2.29 mg/dL (0.66-1.25); POTASSIUM 4.1 mmol/L (3.4-5.0)
[2018-02-24] MEDS ORDERED: APRESOLINE50 MG PO (09:41)
[2018-02-24] MEDS ORDERED: PLAVIX 75MG TAB75 MG PO (09:42)
[2018-02-24] MEDS ORDERED: ASPIRIN 81M81 MG/TA2 PO (09:43)
== END 2018-02-24 14:05 | disposition home or self-care (01) ==
LOC: SDCO 08:19
PROVIDERS: Urology
DX: N31.9 Neuromuscular dysfunction of bladder, unspecified (principal); N39.46 Mixed incontinence; R33.8 Other retention of urine; Z79.01 Long term (current) use of anticoagulants; R39.14 Feeling of incomplete bladder emptying; R35.0 Frequency of micturition; E11.22 Type 2 diabetes mellitus with diabetic chronic kidney disease; I69.998 Other sequelae following unspecified cerebrovascular disease; H54.7 Unspecified visual loss; I12.9 Hypertensive chronic kidney disease with stage 1 through stage 4 chronic kidney disease, or unspecified chronic kidney disease; N18.9 Chronic kidney disease, unspecified; Z79.4 Long term (current) use of insulin; F17.210 Nicotine dependence, cigarettes, uncomplicated; Z83.3 Family history of diabetes mellitus; N52.9 Male erectile dysfunction, unspecified; Z89.611 Acquired absence of right leg above knee; F32.9 Major depressive disorder, single episode, unspecified; K21.9 Gastro-esophageal reflux disease without esophagitis; D64.9 Anemia, unspecified; Z86.14 Personal history of Methicillin resistant Staphylococcus aureus infection; Z88.1 Allergy status to other antibiotic agents; Z88.5 Allergy status to narcotic agent; R20.2 Paresthesia of skin; K44.9 Diaphragmatic hernia without obstruction or gangrene; F41.9 Anxiety disorder, unspecified; E11.40 Type 2 diabetes mellitus with diabetic neuropathy, unspecified; E11.65 Type 2 diabetes mellitus with hyperglycemia; Z96.0 Presence of urogenital implants
CPT/HCPCS: J0690; J2270; J2274; J2704; J7030; J7042

== ENCOUNTER 2018-03-14 19:43 | Inpatient (IN) | payer MEDICARE, MEDICAID ==
[2018-03-14] VITALS (13 sets, daily range): BP systolic 173; BP diastolic 81; PULSE 84; TEMP 98.5; O2SAT 93–100
[~2018-03-14] VITALS: Ht 177.8 cm; Wt 87.1 kg
[~2018-03-14 19:43] MED LIST changes: -MS CONTIN 330 MG/TAB PO; -NOVOLOG FLEX100 U/ML SQ
[2018-03-14 20:13] LABS: BASO % 0.3 % (0.0-2.0); EOS # 0.1 (0.0-0.7); EOS % 1.5 % (0-4.0); GRAN # 6.1 (1.4-6.5); GRAN % 85.3 % (42.2-75.2); LYMPH # 0.5 (1.2-3.4); MEAN CELL VOLUME 76 fl (80.0-100.0); MEAN CORPUSCULAR HGB CONC 39 g/dl (33.0-37.0); MEAN PLATELET VOLUME 9.7 fl (7.4-10.4); MONO # 0.4 (0.1-0.6); MONO % 5.6 % (1.7-9.3); PLATELET COUNT 234 K/mm3 (130-400); RED BLOOD COUNT 2.94 M/mm3 (4.20-5.60); REDCELL DISTRIBUTION WIDTH-CV 12.1 % (11.5-14.5)
[2018-03-14 20:18] LABS: ALANINE AMINOTRANSFERASE 30 U/L (21-72); ALBUMIN 3.2 gm/dL (3.5-5.0); ALKALINE PHOSPHATASE 114 U/L (50-136); ANION GAP 14 mmol/L (7-16); AST,SGOT 33 U/L (15-37); BILIRUBIN,TOTAL 0.6 mg/dL (0.0-1.0); BLOOD UREA NITROGEN 29 mg/dL (9-20); C-REACTIVE PROTEIN 6.6 mg/dL (0.0-0.9); CALCIUM 8.4 mg/dL (8.4-10.2); CARBON DIOXIDE 16 mmol/L (22-30); CREATININE, serum 2.21 mg/dL (0.66-1.25); GLUCOSE 109 mg/dL (74-106); LIPASE 22 U/L (23-300); POTASSIUM 3.4 mmol/L (3.4-5.0); TOTAL PROTEIN 6.5 gm/dL (6.4-8.2)
[2018-03-14 20:49] LABS: COLLECTION METHOD CLEAN CATCH
[2018-03-14 20:52] LABS: HEMATOCRIT 22.3 % (42.0-52.0); HEMOGLOBIN 8.6 g/dl (13.5-18.0); MEAN CORPUSCULAR HEMOGLOBIN 29 pg (27.0-31.0)
[2018-03-14 20:54] LABS: CHLORIDE 75 mmol/L (98-107); SODIUM 105 mmol/L (137-145)
[2018-03-14] MEDS ORDERED: PLAVIX 75MG TAB75 MG PO (20:55)
[2018-03-14] MEDS ORDERED: ATARAX 25MG25 MG/TAB PO (20:55)
[2018-03-14] MEDS ORDERED: LANTUS SOLOS100 U/ML SQ (20:57)
[2018-03-14 20:59] LABS: MUCOUS Present /lpf; PH 5 (5-8); SQUAMOUS EPITHELIAL None Seen /hpf; URINE APPEARANCE Cloudy; URINE BACTERIA Rare /hpf; URINE BILIRUBIN Negative (NEGATIVE); URINE BLOOD 1+ (NEGATIVE); URINE COLOR Yellow; URINE GLUCOSE 1+ (NEGATIVE); URINE KETONE Trace (NEGATIVE); URINE LEUKOCYTE ESTERASE 2+ (NEGATIVE); URINE NITRATE Negative (NEGATIVE); URINE PROTEIN(semi-quant) 2+ (NEGATIVE); URINE UROBILINOGEN Negative (NEGATIVE)
[2018-03-14 21:01] LABS: ACETONE,SERUM MODERATE
[2018-03-14 23:42] LABS: CALCIUM 8.1 mg/dL (8.4-10.2); CREATININE, serum 2.18 mg/dL (0.66-1.25); POTASSIUM 3.3 mmol/L (3.4-5.0)
[2018-03-15] VITALS (410 sets, daily range): BP systolic 153–191; BP diastolic 69–94; PULSE 73–89; TEMP 98–98.5; O2SAT 85–99
[2018-03-15 06:50] LABS: ALBUMIN 2.7 gm/dL (3.5-5.0); BILIRUBIN,TOTAL 0.3 mg/dL (0.0-1.0); CALCIUM 8.1 mg/dL (8.4-10.2); CREATININE, serum 2.13 mg/dL (0.66-1.25); POTASSIUM 3.2 mmol/L (3.4-5.0); TOTAL PROTEIN 5.5 gm/dL (6.4-8.2)
[2018-03-15 07:00] LABS: BASO % 0.5 % (0.0-2.0); EOS # 0.3 (0.0-0.7); EOS % 5.7 % (0-4.0); GRAN # 3.9 (1.4-6.5); GRAN % 64.1 % (42.2-75.2); MEAN CELL VOLUME 79 fl (80.0-100.0); MEAN CORPUSCULAR HGB CONC 37 g/dl (33.0-37.0); MEAN PLATELET VOLUME 9.9 fl (7.4-10.4); MONO # 0.8 (0.1-0.6); PLATELET COUNT 215 K/mm3 (130-400); RED BLOOD COUNT 2.51 M/mm3 (4.20-5.60); REDCELL DISTRIBUTION WIDTH-CV 12.4 % (11.5-14.5)
[2018-03-15 07:01] LABS: HEMATOCRIT 19.7 % (42.0-52.0); HEMOGLOBIN 7.3 g/dl (13.5-18.0); MEAN CORPUSCULAR HEMOGLOBIN 29 pg (27.0-31.0)
[2018-03-15 13:19] LABS: CALCIUM 8.4 mg/dL (8.4-10.2); CREATININE, serum 2.13 mg/dL (0.66-1.25); POTASSIUM 3.4 mmol/L (3.4-5.0)
[2018-03-15 16:13] LABS: CALCIUM 8.3 mg/dL (8.4-10.2); CREATININE, serum 2.1 mg/dL (0.66-1.25); POTASSIUM 3.3 mmol/L (3.4-5.0)
[2018-03-15 20:40] LABS: CALCIUM 8.4 mg/dL (8.4-10.2); CREATININE, serum 2.19 mg/dL (0.66-1.25); POTASSIUM 3.3 mmol/L (3.4-5.0)
[2018-03-16] VITALS (15 sets, daily range): BP systolic 129–177; BP diastolic 58–100; PULSE 70–83; TEMP 98.1–98.6
[2018-03-16 00:35] LABS: CALCIUM 8.2 mg/dL (8.4-10.2); CREATININE, serum 2.17 mg/dL (0.66-1.25); POTASSIUM 3.5 mmol/L (3.4-5.0)
[2018-03-16 04:31] LABS: BASO % 0.6 % (0.0-2.0); EOS # 0.4 (0.0-0.7); GRAN % 63.8 % (42.2-75.2); LYMPH # 1.2 (1.2-3.4); LYMPH % 19.3 % (20.0-51.0); MEAN CELL VOLUME 82 fl (80.0-100.0); MEAN CORPUSCULAR HGB CONC 37 g/dl (33.0-37.0); MEAN PLATELET VOLUME 9.2 fl (7.4-10.4); MONO # 0.6 (0.1-0.6); PLATELET COUNT 234 K/mm3 (130-400); RED BLOOD COUNT 2.22 M/mm3 (4.20-5.60)
[2018-03-16 04:33] LABS: HEMATOCRIT 18.1 % (42.0-52.0); MEAN CORPUSCULAR HEMOGLOBIN 30 pg (27.0-31.0)
[2018-03-16 04:35] LABS: HEMOGLOBIN 6.7 g/dl (13.5-18.0)
[2018-03-16 04:42] LABS: ALBUMIN 2.5 gm/dL (3.5-5.0); BILIRUBIN,TOTAL 0.2 mg/dL (0.0-1.0); CALCIUM 8.3 mg/dL (8.4-10.2); CREATININE, serum 2.14 mg/dL (0.66-1.25); POTASSIUM 4.3 mmol/L (3.4-5.0); TOTAL PROTEIN 5.4 gm/dL (6.4-8.2)
[2018-03-16 06:09] LABS: CALCIUM 8.2 mg/dL (8.4-10.2); CREATININE, serum 2.18 mg/dL (0.66-1.25)
[2018-03-16] MEDS ORDERED: NOVOLOG FLEX100 U/ML SQ (14:30)
== END 2018-03-16 14:41 | disposition home or self-care (01) | DRG 641 ==
LOC: COL.ER 19:43 → ICU 21:10 → MEDICAL 03-15 11:40
PROVIDERS: Family Medicine; Internal Medicine Nephrology
DX: E87.1 Hypo-osmolality and hyponatremia (principal); E87.6 Hypokalemia; E11.22 Type 2 diabetes mellitus with diabetic chronic kidney disease; N18.3 Chronic kidney disease, stage 3 (moderate); D63.1 Anemia in chronic kidney disease; I12.9 Hypertensive chronic kidney disease with stage 1 through stage 4 chronic kidney disease, or unspecified chronic kidney disease; K21.9 Gastro-esophageal reflux disease without esophagitis; F32.9 Major depressive disorder, single episode, unspecified; R10.13 Epigastric pain; Z89.521 Acquired absence of right knee; Z79.4 Long term (current) use of insulin
CPT/HCPCS: J0881; J1170; J1644; J1815; J2405; J3480; J7030; J7050; J7131; P9016

== ENCOUNTER → 2018-04-16 | Outpatient (CLI) | payer MEDICARE, MEDICAID ==
[~2018-04-16] VITALS: Ht 177.8 cm; Wt 81.8 kg
[~2018-04-16] MED LIST changes: +ATARAX 10MG10 MG/TAB; +NOVOLOG FLEX100 U/ML SQ
[2018-04-16 15:26] VITALS: BP 127/66; PULSE 72; TEMP 98
== END ==
LOC: EUO 15:00
DX: N18.4 Chronic kidney disease, stage 4 (severe) (principal); D63.1 Anemia in chronic kidney disease
CPT/HCPCS: J0881

== ENCOUNTER 2018-06-17 15:01 | Outpatient (CLI) | payer MEDICARE, MEDICAID ==
[~2018-06-17] VITALS: Ht 177.8 cm; Wt 87.9 kg
[2018-06-17 15:21] VITALS: BP 128/67; PULSE 78; TEMP 98.8
== END 2018-06-17 15:29 | disposition home or self-care (01) ==
LOC: EUO 15:01
DX: N18.4 Chronic kidney disease, stage 4 (severe) (principal); D63.1 Anemia in chronic kidney disease
CPT/HCPCS: J0881; J0882

== ENCOUNTER → 2018-07-02 | Outpatient (CLI) | payer MEDICARE, MEDICAID ==
[~2018-07-02] MED LIST changes: +ERY-TAB250 M1 PO; +LAMICTAL 25MG T25 MG PO; +MINOXIDIL 2.5 PO; +SINEQUAN 2525 MG/CAP PO
== END ==
LOC: BHSO 15:07
DX: F06.32 Mood disorder due to known physiological condition with major depressive-like episode (principal)
CPT/HCPCS: G0463

== ENCOUNTER 2018-07-05 20:33 | Inpatient (IN) | payer MEDICARE, MEDICAID ==
[~2018-07-05] VITALS: Ht 177.8 cm; Wt 93.6 kg
[2018-07-05] VITALS (10 sets, daily range): BP systolic 176; BP diastolic 96; PULSE 97; TEMP 100; O2SAT 83–95
[~2018-07-05 20:33] MED LIST changes: -ERY-TAB250 M1 PO; -LAMICTAL 25MG T25 MG PO; -MINOXIDIL 2.5 PO; -SINEQUAN 2525 MG/CAP PO
[2018-07-05 21:16] LABS: COLLECTION METHOD CATHETER
[2018-07-05 21:19] LABS: MEAN CELL VOLUME 83 fl (80.0-100.0); MEAN CORPUSCULAR HGB CONC 37 g/dl (33.0-37.0); MEAN PLATELET VOLUME 9.9 fl (7.4-10.4); PLATELET COUNT 185 K/mm3 (130-400); RED BLOOD COUNT 3.08 M/mm3 (4.20-5.60); REDCELL DISTRIBUTION WIDTH-CV 12.2 % (11.5-14.5)
[2018-07-05 21:21] LABS: HEMATOCRIT 25.7 % (42.0-52.0); HEMOGLOBIN 9.6 g/dl (13.5-18.0); MEAN CORPUSCULAR HEMOGLOBIN 31 pg (27.0-31.0)
[2018-07-05 21:25] LABS: MUCOUS Present /lpf; PH 5 (5-8); SQUAMOUS EPITHELIAL 0-2 /hpf; URINE APPEARANCE Cloudy; URINE BACTERIA Rare /hpf; URINE BILIRUBIN Negative (NEGATIVE); URINE BLOOD 1+ (NEGATIVE); URINE COLOR Yellow; URINE GLUCOSE 1+ (NEGATIVE); URINE KETONE Negative (NEGATIVE); URINE LEUKOCYTE ESTERASE 2+ (NEGATIVE); URINE NITRATE Negative (NEGATIVE); URINE PROTEIN(semi-quant) 3+ (NEGATIVE); URINE UROBILINOGEN Negative (NEGATIVE)
[2018-07-05 21:27] LABS: ALANINE AMINOTRANSFERASE 25 U/L (21-72); ALBUMIN 3.5 gm/dL (3.5-5.0); ALKALINE PHOSPHATASE 88 U/L (50-136); ANION GAP 11 mmol/L (7-16); AST,SGOT 47 U/L (15-37); BILIRUBIN,TOTAL 0.6 mg/dL (0.0-1.0); BLOOD UREA NITROGEN 30 mg/dL (9-20); CARBON DIOXIDE 19 mmol/L (22-30); CREATININE, serum 2.58 mg/dL (0.66-1.25); GLUCOSE 137 mg/dL (74-106); TOTAL PROTEIN 6.6 gm/dL (6.4-8.2)
[2018-07-05 21:34] LABS: CHLORIDE 73 mmol/L (98-107)
[2018-07-05 21:35] LABS: SODIUM 104 mmol/L (137-145)
[2018-07-05 21:37] LABS: INR 1.1 (0.8-3.0); PROTHROMBIN TIME 12.9 SECONDS (9.7-12.8)
[2018-07-05 21:39] LABS: BAND 6 % (0-10); LYMPHOCYTE 2 % (20.0-51.0); NEUTROPHILS 87 % (42.0-75.2); PLATELET ESTIMATE NORMAL (NORMAL)
[2018-07-05 21:40] LABS: TROPONIN-I < 0.012 ng/mL (0.000-0.034)
[2018-07-05 23:12] LABS: SODIUM,RANDOM URINE < 5 mmol/L
[2018-07-06] VITALS (465 sets, daily range): BP systolic 166–191; BP diastolic 86–102; PULSE 94–102; TEMP 97.4–98.6; O2SAT 30–100
[2018-07-06 00:36] LABS: CALCIUM 7.9 mg/dL (8.4-10.2); CREATININE, serum 2.59 mg/dL (0.66-1.25)
[2018-07-06] MEDS ORDERED: MINOXIDIL 2.5 PO (00:54)
[2018-07-06] MEDS ORDERED: ERY-TAB250 M1 PO (00:55)
[2018-07-06] MEDS ORDERED: LAMICTAL 25MG T25 MG PO (00:56)
[2018-07-06] MEDS ORDERED: SINEQUAN 2525 MG/CAP PO (00:57)
[2018-07-06 02:38] LABS: CREATININE, serum 2.63 mg/dL (0.66-1.25); POTASSIUM 3.9 mmol/L (3.4-5.0)
[2018-07-06 04:35] LABS: CALCIUM 8.1 mg/dL (8.4-10.2); CREATININE, serum 2.64 mg/dL (0.66-1.25); POTASSIUM 3.8 mmol/L (3.4-5.0)
[2018-07-06 05:16] LABS: BASO % 0.2 % (0.0-2.0); EOS # 0.1 (0.0-0.7); EOS % 0.9 % (0-4.0); GRAN # 10.9 (1.4-6.5); GRAN % 87.3 % (42.2-75.2); LYMPH # 0.6 (1.2-3.4); LYMPH % 4.6 % (20.0-51.0); MEAN CELL VOLUME 81 fl (80.0-100.0); MEAN CORPUSCULAR HGB CONC 39 g/dl (33.0-37.0); MONO # 0.8 (0.1-0.6); MONO % 6.4 % (1.7-9.3); PLATELET COUNT 178 K/mm3 (130-400); RED BLOOD COUNT 2.85 M/mm3 (4.20-5.60); REDCELL DISTRIBUTION WIDTH-CV 12.3 % (11.5-14.5)
[2018-07-06 05:18] LABS: HEMATOCRIT 23.1 % (42.0-52.0); HEMOGLOBIN 8.9 g/dl (13.5-18.0); MEAN CORPUSCULAR HEMOGLOBIN 31 pg (27.0-31.0)
[2018-07-06 05:54] LABS: CALCIUM 8.3 mg/dL (8.4-10.2); CREATININE, serum 2.73 mg/dL (0.66-1.25); POTASSIUM 3.8 mmol/L (3.4-5.0)
[2018-07-06 08:32] LABS: CALCIUM 8.2 mg/dL (8.4-10.2); CREATININE, serum 2.68 mg/dL (0.66-1.25); POTASSIUM 3.8 mmol/L (3.4-5.0)
[2018-07-06 10:33] LABS: CALCIUM 8.3 mg/dL (8.4-10.2); CREATININE, serum 2.78 mg/dL (0.66-1.25); POTASSIUM 3.9 mmol/L (3.4-5.0)
[2018-07-06 12:19] LABS: CREATININE, serum 2.71 mg/dL (0.66-1.25); POTASSIUM 3.8 mmol/L (3.4-5.0)
[2018-07-06 15:03] LABS: CREATININE, serum 2.74 mg/dL (0.66-1.25); POTASSIUM 3.8 mmol/L (3.4-5.0)
[2018-07-06 18:29] LABS: CALCIUM 7.8 mg/dL (8.4-10.2); CREATININE, serum 2.74 mg/dL (0.66-1.25); POTASSIUM 3.7 mmol/L (3.4-5.0)
[2018-07-06 22:30] LABS: CALCIUM 7.8 mg/dL (8.4-10.2); CREATININE, serum 2.74 mg/dL (0.66-1.25); POTASSIUM 3.5 mmol/L (3.4-5.0)
[2018-07-07] VITALS (427 sets, daily range): BP systolic 120–185; BP diastolic 60–100; PULSE 93–100; TEMP 97.8–99.2; O2SAT 76–100
[2018-07-07 05:48] LABS: CALCIUM 8.3 mg/dL (8.4-10.2); CREATININE, serum 2.89 mg/dL (0.66-1.25)
[2018-07-07 05:50] LABS: POTASSIUM 2.9 mmol/L (3.4-5.0)
[2018-07-07 10:09] LABS: CALCIUM 8.3 mg/dL (8.4-10.2); CREATININE, serum 2.83 mg/dL (0.66-1.25); MAGNESIUM 1.8 mg/dL (1.6-2.3); POTASSIUM 3.7 mmol/L (3.4-5.0)
[2018-07-07 11:52] LABS: CREATININE, serum 2.8 mg/dL (0.66-1.25); POTASSIUM 3.6 mmol/L (3.4-5.0)
[2018-07-07 17:50] LABS: CALCIUM 7.4 mg/dL (8.4-10.2); CREATININE, serum 2.59 mg/dL (0.66-1.25); POTASSIUM 3.7 mmol/L (3.4-5.0)
[2018-07-07 23:38] LABS: CALCIUM 8.1 mg/dL (8.4-10.2); CREATININE, serum 2.96 mg/dL (0.66-1.25); POTASSIUM 3.7 mmol/L (3.4-5.0)
[2018-07-08 00:20] VITALS: BP 155/84; PULSE 91; TEMP 98.2
[2018-07-08 04:00] VITALS: BP 168/80; PULSE 92; TEMP 97.6
[2018-07-08 06:56] LABS: MEAN CORPUSCULAR HGB CONC 35 g/dl (33.0-37.0); MEAN PLATELET VOLUME 9.7 fl (7.4-10.4); PLATELET COUNT 228 K/mm3 (130-400); RED BLOOD COUNT 2.36 M/mm3 (4.20-5.60); REDCELL DISTRIBUTION WIDTH-CV 13.2 % (11.5-14.5)
[2018-07-08 06:59] LABS: HEMATOCRIT 20.8 % (42.0-52.0); HEMOGLOBIN 7.2 g/dl (13.5-18.0); MEAN CELL VOLUME 88 fl (80.0-100.0); MEAN CORPUSCULAR HEMOGLOBIN 31 pg (27.0-31.0)
[2018-07-08 07:02] LABS: CREATININE, serum 2.87 mg/dL (0.66-1.25); POTASSIUM 3.8 mmol/L (3.4-5.0)
[2018-07-08 07:27] LABS: BAND 1 % (0-10); BASOPHIL 1 % (0-2); EOSINOPHIL 11 % (0-4); LYMPHOCYTE 14 % (20.0-51.0); NEUTROPHILS 64 % (42.0-75.2); PLATELET ESTIMATE NORMAL (NORMAL)
[2018-07-08 08:13] VITALS: BP 177/84; PULSE 95; TEMP 98.4
[2018-07-08 10:56] VITALS: BP 161/77; PULSE 91; TEMP 98.8
[2018-07-08 11:17] LABS: CREATININE, serum 2.84 mg/dL (0.66-1.25); POTASSIUM 3.8 mmol/L (3.4-5.0)
[2018-07-08 15:38] VITALS: BP 138/70; PULSE 85; TEMP 98.9
[2018-07-08 18:05] LABS: CALCIUM 8.1 mg/dL (8.4-10.2); CREATININE, serum 2.72 mg/dL (0.66-1.25); POTASSIUM 3.9 mmol/L (3.4-5.0)
[2018-07-08 19:53] VITALS: BP 148/82; PULSE 89; TEMP 97.5
[2018-07-08 23:27] LABS: CALCIUM 7.9 mg/dL (8.4-10.2); CREATININE, serum 2.75 mg/dL (0.66-1.25); POTASSIUM 4.2 mmol/L (3.4-5.0)
[2018-07-09 00:17] VITALS: BP 157/76; PULSE 82; TEMP 98.9
[2018-07-09 03:21] VITALS: BP 177/89; PULSE 82; TEMP 98.1
[2018-07-09 07:31] VITALS: BP 188/87; PULSE 90; TEMP 98.7
[2018-07-09 07:32] LABS: BASO # 0.1 (0.0-0.2); EOS # 1.4 (0.0-0.7); EOS % 20.2 % (0-4.0); GRAN # 3.3 (1.4-6.5); GRAN % 50.2 % (42.2-75.2); LYMPH # 1.2 (1.2-3.4); LYMPH % 17.7 % (20.0-51.0); MEAN CELL VOLUME 87 fl (80.0-100.0); MEAN CORPUSCULAR HGB CONC 36 g/dl (33.0-37.0); MEAN PLATELET VOLUME 9.3 fl (7.4-10.4); MONO # 0.7 (0.1-0.6); MONO % 10.5 % (1.7-9.3); PLATELET COUNT 241 K/mm3 (130-400); RED BLOOD COUNT 2.38 M/mm3 (4.20-5.60); REDCELL DISTRIBUTION WIDTH-CV 13.4 % (11.5-14.5)
[2018-07-09 07:36] LABS: HEMATOCRIT 20.8 % (42.0-52.0); HEMOGLOBIN 7.4 g/dl (13.5-18.0); MEAN CORPUSCULAR HEMOGLOBIN 31 pg (27.0-31.0)
[2018-07-09 11:03] VITALS: BP 173/93; PULSE 88; TEMP 98.8
[2018-07-09] MEDS ORDERED: MINOXIDIL 2.5 PO (11:53)
[2018-07-09] MEDS ORDERED: LEVAQUIN 750MG750 M1 PO (11:58)
== END 2018-07-09 14:32 | disposition home health service (06) | DRG 698 ==
LOC: COL.ER 20:33 → ICU 23:04 → MEDICAL 07-07 12:45
PROVIDERS: Emergency Medicine; Internal Medicine; Internal Medicine Nephrology; Nurse Practitioner Family; Physician Assistant
PROC: 02HV33Z Insertion of Infusion Device into Superior Vena Cava, Percutaneous Approach (ICD-10-PCS; principal; 2018-07-06)
DX: T83.511A Infection and inflammatory reaction due to indwelling urethral catheter, initial encounter (principal); A41.9 Sepsis, unspecified organism; E87.1 Hypo-osmolality and hyponatremia; N17.9 Acute kidney failure, unspecified; Q21.1 Atrial septal defect; I13.0 Hypertensive heart and chronic kidney disease with heart failure and stage 1 through stage 4 chronic kidney disease, or unspecified chronic kidney disease; E87.2 Acidosis; I50.32 Chronic diastolic (congestive) heart failure; N39.0 Urinary tract infection, site not specified; N18.3 Chronic kidney disease, stage 3 (moderate); E11.22 Type 2 diabetes mellitus with diabetic chronic kidney disease; Z89.511 Acquired absence of right leg below knee; E11.43 Type 2 diabetes mellitus with diabetic autonomic (poly)neuropathy; E11.42 Type 2 diabetes mellitus with diabetic polyneuropathy; K31.84 Gastroparesis; D63.1 Anemia in chronic kidney disease; Z79.4 Long term (current) use of insulin; G89.29 Other chronic pain; F17.210 Nicotine dependence, cigarettes, uncomplicated; B95.2 Enterococcus as the cause of diseases classified elsewhere; H54.3 Unqualified visual loss, both eyes; E87.6 Hypokalemia; E11.649 Type 2 diabetes mellitus with hypoglycemia without coma
CPT/HCPCS: 99223-AI; 99232-AI; 99233-AI; C1751; J0360; J0692; J1644; J1815; J2550; J3370; J7030; J7050; J7131

== ENCOUNTER → 2018-07-05 | Outpatient (CLI) | payer MEDICARE, MEDICAID | LOC: ZCOL.LAB 15:17 | DX: R30.0 Dysuria (principal) ==

== ENCOUNTER 2018-08-05 22:13 | Emergency (ER) | payer MEDICARE, MEDICAID ==
[~2018-08-05] VITALS: Ht 177.8 cm; Wt 81.8 kg
[~2018-08-05 22:13] MED LIST changes: +ERY-TAB250 M1 PO; +LAMICTAL 25MG T25 MG PO; +MINOXIDIL 2.5 PO; +SINEQUAN 2525 MG/CAP PO
[2018-08-05 22:17] VITALS: TEMP 96.9
[2018-08-05 22:44] LABS: BASO # 0.1 (0.0-0.2); BASO % 0.5 % (0.0-2.0); EOS # 0.8 (0.0-0.7); EOS % 5.3 % (0-4.0); GRAN # 11.4 (1.4-6.5); GRAN % 80.6 % (42.2-75.2); LYMPH # 0.8 (1.2-3.4); LYMPH % 5.9 % (20.0-51.0); MEAN CELL VOLUME 85 fl (80.0-100.0); MEAN CORPUSCULAR HEMOGLOBIN 31 pg (27.0-31.0); MEAN CORPUSCULAR HGB CONC 37 g/dl (33.0-37.0); MEAN PLATELET VOLUME 9.7 fl (7.4-10.4); MONO % 7.2 % (1.7-9.3); PLATELET COUNT 168 K/mm3 (130-400); RED BLOOD COUNT 3.23 M/mm3 (4.20-5.60); REDCELL DISTRIBUTION WIDTH-CV 12.3 % (11.5-14.5)
[2018-08-05 22:49] LABS: HEMATOCRIT 27.4 % (42.0-52.0)
[2018-08-05 23:01] LABS: ALANINE AMINOTRANSFERASE 31 U/L (21-72); ALBUMIN 3.8 gm/dL (3.5-5.0); ALKALINE PHOSPHATASE 83 U/L (50-136); ANION GAP 6 mmol/L (7-16); AST,SGOT 25 U/L (15-37); BILIRUBIN,TOTAL 0.3 mg/dL (0.0-1.0); BLOOD UREA NITROGEN 31 mg/dL (9-20); CALCIUM 8.2 mg/dL (8.4-10.2); CARBON DIOXIDE 25 mmol/L (22-30); CREATININE, serum 2.47 mg/dL (0.66-1.25); GLUCOSE 103 mg/dL (74-106); POTASSIUM 3.7 mmol/L (3.4-5.0); TOTAL PROTEIN 6.8 gm/dL (6.4-8.2)
[2018-08-05 23:03] LABS: CHLORIDE 86 mmol/L (98-107); SODIUM 117 mmol/L (137-145)
[2018-08-05 23:10] LABS: TROPONIN-I < 0.012 ng/mL (0.000-0.034)
[2018-08-06 01:10] LABS: BUDDING YEAST Present /hpf; MUCOUS Present /lpf; PH 5 (5-8); SQUAMOUS EPITHELIAL None Seen /hpf; URINE APPEARANCE Hazy; URINE BACTERIA Rare /hpf; URINE BILIRUBIN Negative (NEGATIVE); URINE BLOOD 1+ (NEGATIVE); URINE COLOR Yellow; URINE GLUCOSE 1+ (NEGATIVE); URINE KETONE Negative (NEGATIVE); URINE LEUKOCYTE ESTERASE 2+ (NEGATIVE); URINE NITRATE Negative (NEGATIVE); URINE PROTEIN(semi-quant) 3+ (NEGATIVE); URINE UROBILINOGEN Negative (NEGATIVE)
[2018-08-06] MEDS ORDERED: BACTRIM DS 8001 TAB PO (02:12)
[2018-08-06 02:35] VITALS: BP 172/96; PULSE 97
[2018-08-07 10:51] LABS: COLLECTION METHOD CATHETER
[2018-08-08] MEDS ORDERED: AMOXICILLIN875 MG PO (15:25)
== END 2018-08-06 02:35 | disposition left against medical advice (07) ==
LOC: COL.ER 22:13
PROVIDERS: Emergency Medicine
DX: N39.0 Urinary tract infection, site not specified (principal); E11.43 Type 2 diabetes mellitus with diabetic autonomic (poly)neuropathy; E11.22 Type 2 diabetes mellitus with diabetic chronic kidney disease; K31.84 Gastroparesis; E87.8 Other disorders of electrolyte and fluid balance, not elsewhere classified; I12.9 Hypertensive chronic kidney disease with stage 1 through stage 4 chronic kidney disease, or unspecified chronic kidney disease; N18.9 Chronic kidney disease, unspecified; F17.210 Nicotine dependence, cigarettes, uncomplicated; Z79.02 Long term (current) use of antithrombotics/antiplatelets; Z79.4 Long term (current) use of insulin
CPT/HCPCS: J1956; J2405; J7030

== ENCOUNTER 2018-10-06 15:57 | Outpatient (CLI) | payer MEDICARE, MEDICAID ==
[~2018-10-06] VITALS: Ht 177.8 cm; Wt 87.3 kg
[~2018-10-06 15:57] MED LIST changes: +AMOXICILLIN875 MG PO
[2018-10-06 16:55] VITALS: BP 159/86; PULSE 78; TEMP 98.1
== END 2018-10-06 16:56 | disposition home or self-care (01) ==
LOC: EUO 15:57
DX: N18.4 Chronic kidney disease, stage 4 (severe) (principal); D63.1 Anemia in chronic kidney disease; Z79.899 Other long term (current) drug therapy
CPT/HCPCS: J0881

== ENCOUNTER 2018-11-05 16:08 | Outpatient (CLI) | payer MEDICARE, MEDICAID ==
[~2018-11-05] VITALS: Ht 177.8 cm; Wt 131.8 kg
[2018-11-05 16:33] VITALS: BP 143/78; PULSE 71; TEMP 98.4
== END 2018-11-05 16:52 | disposition home or self-care (01) ==
LOC: EUO 16:08
DX: N18.4 Chronic kidney disease, stage 4 (severe) (principal); D63.1 Anemia in chronic kidney disease
CPT/HCPCS: J0881

== ENCOUNTER 2018-11-29 07:18 | Emergency (ER) | payer MEDICARE, MEDICAID ==
[~2018-11-29] VITALS: Ht 177.8 cm; Wt 88.6 kg
[2018-11-29 07:22] VITALS: TEMP 98
[2018-11-29 08:08] LABS: COLLECTION METHOD CATHETER
[2018-11-29 08:15] LABS: MUCOUS Present /lpf; PH 6 (5-8); SQUAMOUS EPITHELIAL None Seen /hpf; URINE APPEARANCE Clear; URINE BACTERIA Occasional /hpf; URINE BILIRUBIN Negative (NEGATIVE); URINE BLOOD 1+ (NEGATIVE); URINE COLOR Straw; URINE GLUCOSE Negative (NEGATIVE); URINE KETONE Negative (NEGATIVE); URINE LEUKOCYTE ESTERASE 1+ (NEGATIVE); URINE NITRATE Negative (NEGATIVE); URINE PROTEIN(semi-quant) 2+ (NEGATIVE); URINE RBC 0-2 /hpf; URINE UROBILINOGEN Negative (NEGATIVE); URINE WBC 20-50 /hpf
[2018-11-29] MEDS ORDERED: MOVANTIK12.5 MG PO ×2 (08:22→09:10)
[2018-11-29] MEDS ORDERED: ATARAX 25MG25 MG/TAB PO (08:22)
[2018-11-29 08:25] LABS: BASO # 0.1 (0.0-0.2); BASO % 0.9 % (0.0-2.0); EOS # 0.6 (0.0-0.7); EOS % 10.4 % (0-4.0); GRAN # 2.7 (1.4-6.5); GRAN % 47.8 % (42.2-75.2); HEMATOCRIT 24.2 % (42.0-52.0); HEMOGLOBIN 8.2 g/dl (13.5-18.0); LYMPH # 1.7 (1.2-3.4); LYMPH % 30.1 % (20.0-51.0); MEAN CELL VOLUME 91 fl (80.0-100.0); MEAN CORPUSCULAR HEMOGLOBIN 31 pg (27.0-31.0); MEAN CORPUSCULAR HGB CONC 34 g/dl (33.0-37.0); MEAN PLATELET VOLUME 9.8 fl (7.4-10.4); MONO # 0.6 (0.1-0.6); MONO % 10.6 % (1.7-9.3); PLATELET COUNT 176 K/mm3 (130-400); RED BLOOD COUNT 2.66 M/mm3 (4.20-5.60); REDCELL DISTRIBUTION WIDTH-CV 12.3 % (11.5-14.5)
[2018-11-29] MEDS ORDERED: [UNRECOGNIZED DRUG - OTHER] PO (08:31)
[2018-11-29 08:40] LABS: ALBUMIN 3.8 gm/dL (3.5-5.0); BILIRUBIN,TOTAL 0.1 mg/dL (0.0-1.0); CALCIUM 8.7 mg/dL (8.4-10.2); CREATININE, serum 3.44 mg/dL (0.66-1.25); POTASSIUM 3.9 mmol/L (3.4-5.0); TOTAL PROTEIN 6.4 gm/dL (6.4-8.2)
[2018-11-29] MEDS ORDERED: OMNICEF 300MG300 MG PO (09:00)
[2018-11-29] MEDS ORDERED: AMOXICILLIN 50500 MG PO (09:00)
[2018-11-29] MEDS ORDERED: TYLENOL 325MG325 MG PO (09:23)
[2018-11-29] MEDS ORDERED: DULCOLAX S10 MG/SUPP RC (09:23)
[2018-11-29] MEDS ORDERED: SINEQUAN 2525 MG/CAP PO (09:25)
[2018-11-29 10:51] VITALS: BP 166/82; PULSE 80
== END 2018-11-29 10:58 | disposition home or self-care (01) ==
LOC: COL.ER 07:18
PROVIDERS: Emergency Medicine
DX: N39.0 Urinary tract infection, site not specified (principal); E11.22 Type 2 diabetes mellitus with diabetic chronic kidney disease; I12.9 Hypertensive chronic kidney disease with stage 1 through stage 4 chronic kidney disease, or unspecified chronic kidney disease; N18.9 Chronic kidney disease, unspecified; F17.210 Nicotine dependence, cigarettes, uncomplicated; Z90.89 Acquired absence of other organs; Z79.4 Long term (current) use of insulin; Z79.82 Long term (current) use of aspirin; Z79.02 Long term (current) use of antithrombotics/antiplatelets
CPT/HCPCS: A4216; J0696; J1610; J2270; J2550

== ENCOUNTER 2018-12-15 12:44 | Inpatient (IN) | payer MEDICARE, MEDICAID ==
[~2018-12-15] VITALS: Ht 157.5 cm; Wt 93.8 kg
[~2018-12-15 12:44] MED LIST changes: +AMOXICILLIN 50500 MG PO; +MOVANTIK12.5 MG PO; +OMNICEF 300MG300 MG PO; +[UNRECOGNIZED DRUG - OTHER] PO
[2018-12-15 13:15] LABS: BASO # 0.1 (0.0-0.2); BASO % 0.5 % (0.0-2.0); EOS # 0.6 (0.0-0.7); EOS % 5.8 % (0-4.0); GRAN # 7.2 (1.4-6.5); GRAN % 76.5 % (42.2-75.2); LYMPH # 0.8 (1.2-3.4); LYMPH % 8.4 % (20.0-51.0); MEAN CELL VOLUME 84 fl (80.0-100.0); MEAN CORPUSCULAR HGB CONC 37 g/dl (33.0-37.0); MEAN PLATELET VOLUME 9.9 fl (7.4-10.4); MONO # 0.8 (0.1-0.6); MONO % 8.5 % (1.7-9.3); PLATELET COUNT 127 K/mm3 (130-400); RED BLOOD COUNT 2.62 M/mm3 (4.20-5.60); REDCELL DISTRIBUTION WIDTH-CV 11.6 % (11.5-14.5)
[2018-12-15 13:16] LABS: HEMOGLOBIN 8.1 g/dl (13.5-18.0); MEAN CORPUSCULAR HEMOGLOBIN 31 pg (27.0-31.0)
[2018-12-15 13:24] LABS: ALBUMIN 3.8 gm/dL (3.5-5.0); BILIRUBIN,TOTAL 0.3 mg/dL (0.0-1.0); CALCIUM 8.8 mg/dL (8.4-10.2); CREATININE, serum 3.03 mg/dL (0.66-1.25); POTASSIUM 3.7 mmol/L (3.4-5.0); TOTAL PROTEIN 6.5 gm/dL (6.4-8.2)
[2018-12-15] MEDS ORDERED: SINEQUAN 2525 MG/CAP PO ×2 (13:41→15:08)
[2018-12-15] MEDS ORDERED: FERROUS SU325 MG/TAB PO (13:42)
[2018-12-15] MEDS ORDERED: FLONASEALLERGY NS (13:42)
[2018-12-15] MEDS ORDERED: LASIX 40MG TABL40 MG PO (13:43)
[2018-12-15] MEDS ORDERED: LAMICTAL 25MG T25 MG PO (13:44)
[2018-12-15] MEDS ORDERED: MINOXIDIL 2.5 PO (13:46)
[2018-12-15] MEDS ORDERED: PROTONIX 40MG T40 MG PO ×2 (13:48→15:14)
[2018-12-15] MEDS ORDERED: CALCITRIOL PO (13:48)
[2018-12-15 13:49] LABS: COLLECTION METHOD CLEAN CATCH
[2018-12-15] MEDS ORDERED: CRESTOR40 MG PO ×2 (13:49→15:15)
[2018-12-15] MEDS ORDERED: VELTASSA8.4 GM PO (13:49)
[2018-12-15] MEDS ORDERED: MS CONTIN 115 MG/TAB PO (14:01)
[2018-12-15 14:09] LABS: BUDDING YEAST Present /hpf; MUCOUS Present /lpf; PH 5 (5-8); SQUAMOUS EPITHELIAL 0-2 /hpf; URINE APPEARANCE Cloudy; URINE BACTERIA Rare /hpf; URINE BILIRUBIN Negative (NEGATIVE); URINE BLOOD Negative (NEGATIVE); URINE COLOR Yellow; URINE GLUCOSE 1+ (NEGATIVE); URINE KETONE Negative (NEGATIVE); URINE LEUKOCYTE ESTERASE 1+ (NEGATIVE); URINE NITRATE Negative (NEGATIVE); URINE PROTEIN(semi-quant) 2+ (NEGATIVE); URINE RBC 20-50 /hpf; URINE UROBILINOGEN Negative (NEGATIVE)
[2018-12-15] MEDS ORDERED: ERYTHROCIN STE500 MG (15:09)
[2018-12-15] MEDS ORDERED: GLUCAGON EMERGEN1 M1 SQ (15:10)
[2018-12-15] MEDS ORDERED: ZOFRAN 4MG T4 MG/TAB PO (15:13)
[2018-12-15] MEDS ORDERED: VITAMIN D 400400 IU PO (15:16)
[2018-12-15] MEDS ORDERED: CHANTIX 1MG1 MG PO (15:20)
--- NOTE | 2018-12-15 16:05 | NUR ---
Pt was admitted to room 357 from ED. 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 No prosthetic here. Pt states he is experiencing chronic back pain and a headache, requested PRN oxycodone which was given. Pt also states he is "having trouble breathing when laying down." Refused orthostatics. Pt remains on room air, resp. are even and unlabored. Saline lock to left hand noted. Chronic ragland noted, clear, yellow urine noted. Pt was oriented to room and to staff, expressed understanding.
[2018-12-15 16:06] VITALS: BP 172/87; PULSE 85; TEMP 98.2
[2018-12-15 16:46] LABS: CALCIUM 8.7 mg/dL (8.4-10.2); CREATININE, serum 3.03 mg/dL (0.66-1.25); POTASSIUM 3.6 mmol/L (3.4-5.0)
[2018-12-15 20:13] VITALS: BP 149/80; PULSE 73; TEMP 98
[2018-12-15 21:55] LABS: CALCIUM 8.4 mg/dL (8.4-10.2); CREATININE, serum 3.24 mg/dL (0.66-1.25); POTASSIUM 3.6 mmol/L (3.4-5.0)
[2018-12-16 00:26] VITALS: BP 152/82; PULSE 80; TEMP 98.4
[2018-12-16 02:19] LABS: CALCIUM 8.3 mg/dL (8.4-10.2); CREATININE, serum 3.32 mg/dL (0.66-1.25); POTASSIUM 3.8 mmol/L (3.4-5.0)
[2018-12-16 03:49] VITALS: BP 136/72; PULSE 79; TEMP 98.5
--- NOTE | 2018-12-16 04:48 | NUR ---
AT HS BLOOD SUGAR CHECK PT'S BLOOD SUGAR WAS 48. PT WAS SHAKEY AT TIME. THIS NURSE HAD MICROPHONE OPERATOR GET PT SOME ORANGE JUICE AND A SNACK AT THAT TIME. THIS NURSE WENT BACK TO PT ROOM AFTERWARDS, GOT PT SOME SAUMYA CRACKERS AND PEANUT BUTTER AND SOME MORE JUICE, PT ATE THAT AND REQUESTED A PUDDING CUP WELL. THIS NURSE RECHECKED BLOOD SUGAR AT BEDTIME. PT BLOOD SUGAR HAD GOTTEN UP TO 186 AT THIS TIME. PT FELT IT WAS OK TO TAKE HIS HS LANTUS AT THIS TIME. BNP WAS CHECK Q4H AND LABS DIDNT SHOW MUCH IMPROVEMENT, NACL REMIANED WITHIN CRITICAL VALUES, NOTIFIED CORE DRILLING SUPERVISOR ON DUTY. PT REQUSTED PAIN MEDICATION AT BEDTIME AND HAD C/O BEING COLD, THIS NURSE ADJSUTED THERMOSTATE IN ROOM AND PROVIDED A WARM BLANKET. PT ARREARED TO HAVE SLEPT WELL MOST OF NOC, AWAKING AT APPROX 0400, NO COMPLAINTS VOICED UPON RISING. WILL CONTINUE TO MONITOR PT
[2018-12-16 05:52] LABS: BASO % 0.5 % (0.0-2.0); EOS # 0.5 (0.0-0.7); EOS % 8.6 % (0-4.0); GRAN # 3.4 (1.4-6.5); GRAN % 55.4 % (42.2-75.2); LYMPH # 1.4 (1.2-3.4); LYMPH % 22.5 % (20.0-51.0); MEAN CELL VOLUME 85 fl (80.0-100.0); MEAN CORPUSCULAR HGB CONC 37 g/dl (33.0-37.0); MEAN PLATELET VOLUME 10.3 fl (7.4-10.4); MONO # 0.8 (0.1-0.6); MONO % 12.8 % (1.7-9.3); PLATELET COUNT 122 K/mm3 (130-400); RED BLOOD COUNT 2.23 M/mm3 (4.20-5.60); REDCELL DISTRIBUTION WIDTH-CV 11.8 % (11.5-14.5)
[2018-12-16 05:55] LABS: HEMOGLOBIN 7.1 g/dl (13.5-18.0); MEAN CORPUSCULAR HEMOGLOBIN 32 pg (27.0-31.0)
[2018-12-16 06:05] LABS: CALCIUM 8.2 mg/dL (8.4-10.2); CREATININE, serum 3.35 mg/dL (0.66-1.25)
--- NOTE | 2018-12-16 06:15 | NUR ---
talked with nurse Shelby SINGLETON, regarding pts MIRTHA, Nurse states she will get consent. All paperwork left on front of chart for nurse to obtain consent along with order and time out sheet.
[2018-12-16 07:52] VITALS: BP 174/87; PULSE 80; TEMP 98.2
--- NOTE | 2018-12-16 08:38 | NUR ---
Assessment completed, alert/oriented, vital signs stable, headache is improved, reports chronic generalized pain is at baseline 05/19 this morning, Sodium level still low/ last check 119 and this mornings check is pending still, creatnine is trending up/ will discuss some IVF with nephrology, plan for radiology to do epidural steroid injection today around 1200, heart RRR, lungs CTA/ no resp.difficulty, he is sitting up in bed eating breakfast, denies needs at this
[2018-12-16 08:56] LABS: CALCIUM 8.4 mg/dL (8.4-10.2); CREATININE, serum 3.5 mg/dL (0.66-1.25)
[2018-12-16 11:41] VITALS: BP 145/72; PULSE 76; TEMP 98.8
[2018-12-16] MEDS ORDERED: K-TAB20 PO (14:22)
--- NOTE | 2018-12-16 14:22 | NUR ---
patient has decided to leave AMA, I have removed his IV and notified hospitalist, risks of leaving AMA discussed and patient verabalized understanding and signed AMA paperwork
--- NOTE | 2018-12-16 14:24 | NUR ---
SW attempted to meet with the patient. The patient left AMA. No additional needs at this time.
== END 2018-12-16 14:38 | disposition left against medical advice (07) | DRG 641 ==
LOC: COL.ER 12:44 → MEDICAL 14:22
PROVIDERS: Emergency Medicine; Internal Medicine
DX: E87.1 Hypo-osmolality and hyponatremia (principal); N18.4 Chronic kidney disease, stage 4 (severe); I12.9 Hypertensive chronic kidney disease with stage 1 through stage 4 chronic kidney disease, or unspecified chronic kidney disease; E10.22 Type 1 diabetes mellitus with diabetic chronic kidney disease; E10.319 Type 1 diabetes mellitus with unspecified diabetic retinopathy without macular edema; E10.21 Type 1 diabetes mellitus with diabetic nephropathy; E10.40 Type 1 diabetes mellitus with diabetic neuropathy, unspecified; E10.65 Type 1 diabetes mellitus with hyperglycemia; Z89.511 Acquired absence of right leg below knee; F17.210 Nicotine dependence, cigarettes, uncomplicated; G89.29 Other chronic pain; D63.1 Anemia in chronic kidney disease; H54.8 Legal blindness, as defined in USA
CPT/HCPCS: 99232-AI; J0360; J0780; J0881; J1170; J1644; J1815; J1940; J2405; J3301; J7030

== ENCOUNTER 2019-01-15 15:37 | Outpatient (CLI) | payer MEDICARE, MEDICAID ==
[~2019-01-15] VITALS: Ht 157.5 cm; Wt 90.9 kg
[~2019-01-15 15:37] MED LIST changes: +CRESTOR40 MG PO; +ERYTHROCIN STE500 MG; +FLONASEALLERGY NS; +GLUCAGON EMERGEN1 M1 SQ; +K-TAB20 PO; +VELTASSA8.4 GM PO; +VITAMIN D 400400 IU PO
[2019-01-15] MEDS ORDERED: DILAUDID 2MG TAB2 MG PO (15:52)
[2019-01-15 15:58] VITALS: BP 189/90; PULSE 84; TEMP 98.6
== END 2019-01-15 16:28 | disposition home or self-care (01) ==
LOC: EUO 15:37
DX: N18.4 Chronic kidney disease, stage 4 (severe) (principal); D63.1 Anemia in chronic kidney disease
CPT/HCPCS: J0881

== ENCOUNTER → 2019-01-20 | Outpatient (CLI) | payer MEDICARE, MEDICAID ==
[~2019-01-20] MED LIST changes: +DILAUDID 2MG TAB2 MG PO
== END ==
LOC: MHCPAIN 15:13
DX: G89.29 Other chronic pain (principal); M47.817 Spondylosis without myelopathy or radiculopathy, lumbosacral region; M54.16 Radiculopathy, lumbar region; M53.3 Sacrococcygeal disorders, not elsewhere classified
CPT/HCPCS: G0463

== ENCOUNTER → 2019-01-22 | Outpatient (CLI) | payer MEDICARE, MEDICAID | LOC: BHSO 09:42 | DX: F06.32 Mood disorder due to known physiological condition with major depressive-like episode (principal) | CPT/HCPCS: G0463 ==

== ENCOUNTER 2019-01-28 10:21 | Outpatient (RCR) | payer MEDICARE, MEDICAID ==
[2019-02-24] MEDS ORDERED: PHENERGAN 25 TA25 MG PO (18:25)
[2019-03-01] MEDS ORDERED: MIRALAX PA17 GM/Dose PO (10:50)
[2019-03-01] MEDS ORDERED: CALCITRIOL PO (10:51)
[2019-03-01] MEDS ORDERED: VELTASSA8.4 GM PO (10:52)
== END 2019-03-02 10:19 | disposition home or self-care (01) ==
LOC: MKS.ESL.OT 10:21
DX: M54.16 Radiculopathy, lumbar region (principal); E11.40 Type 2 diabetes mellitus with diabetic neuropathy, unspecified

== ENCOUNTER 2019-02-19 16:28 | Outpatient (CLI) | payer MEDICARE, MEDICAID ==
[~2019-02-19] VITALS: Ht 157.5 cm; Wt 90.9 kg
[2019-02-19 16:56] VITALS: BP 144/70; PULSE 94; TEMP 98.3
== END 2019-02-19 17:15 | disposition home or self-care (01) ==
LOC: EUO 16:28
DX: N18.3 Chronic kidney disease, stage 3 (moderate) (principal); D63.1 Anemia in chronic kidney disease
CPT/HCPCS: J0881

== ENCOUNTER 2019-02-24 15:54 | Emergency (ER) | payer MEDICARE, MEDICAID ==
[~2019-02-24] VITALS: Ht 177.8 cm; Wt 90.9 kg
[2019-02-24 16:11] VITALS: TEMP 98.8
[2019-02-24 17:14] LABS: BASO % 0.4 % (0.0-2.0); EOS # 0.3 (0.0-0.7); EOS % 3.3 % (0-4.0); GRAN # 7.3 (1.4-6.5); GRAN % 78.7 % (42.2-75.2); HEMATOCRIT 21.5 % (42.0-52.0); HEMOGLOBIN 7.6 g/dl (13.5-18.0); LYMPH # 0.9 (1.2-3.4); LYMPH % 9.1 % (20.0-51.0); MEAN CELL VOLUME 89 fl (80.0-100.0); MEAN CORPUSCULAR HEMOGLOBIN 32 pg (27.0-31.0); MEAN CORPUSCULAR HGB CONC 35 g/dl (33.0-37.0); MEAN PLATELET VOLUME 9.5 fl (7.4-10.4); MONO # 0.8 (0.1-0.6); PLATELET COUNT 153 K/mm3 (130-400); RED BLOOD COUNT 2.41 M/mm3 (4.20-5.60); REDCELL DISTRIBUTION WIDTH-CV 12.2 % (11.5-14.5)
[2019-02-24 17:24] LABS: ALBUMIN 3.3 gm/dL (3.5-5.0); BILIRUBIN,TOTAL 0.5 mg/dL (0.0-1.0); C-REACTIVE PROTEIN 3.1 mg/dL (0.0-0.9); CALCIUM 8.6 mg/dL (8.4-10.2); CREATININE, serum 3.69 (0.66-1.25); POTASSIUM 3.8 mmol/L (3.4-5.0); TOTAL PROTEIN 5.9 gm/dL (6.4-8.2)
[2019-02-24] MEDS ORDERED: PHENERGAN 25 TA25 MG PO (18:25)
[2019-02-24 19:59] VITALS: BP 167/89; PULSE 116
== END 2019-02-24 18:48 | disposition home or self-care (01) ==
LOC: COL.ER 15:54
PROVIDERS: Emergency Medicine
DX: T83.038A Leakage of other urinary catheter, initial encounter (principal); E87.1 Hypo-osmolality and hyponatremia; D64.9 Anemia, unspecified; R11.10 Vomiting, unspecified; Z79.4 Long term (current) use of insulin; Z79.82 Long term (current) use of aspirin; Y84.6 Urinary catheterization as the cause of abnormal reaction of the patient, or of later complication, without mention of misadventure at the time of the procedure
CPT/HCPCS: J0780; J1170

== ENCOUNTER → 2019-02-26 | Outpatient (CLI) | payer MEDICARE, MEDICAID ==
[2019-02-26 10:14] LABS: HEMATOCRIT 21.3 % (42.0-52.0); HEMOGLOBIN 7.5 g/dl (13.5-18.0)
[2019-02-26 10:22] LABS: CALCIUM 8.5 mg/dL (8.4-10.2); POTASSIUM 3.8 mmol/L (3.4-5.0)
[2019-02-26 10:28] LABS: CREATININE, serum 3.96 (0.66-1.25)
== END ==
LOC: COL.LAB 09:48
PROVIDERS: Internal Medicine
DX: I12.9 Hypertensive chronic kidney disease with stage 1 through stage 4 chronic kidney disease, or unspecified chronic kidney disease (principal); N18.3 Chronic kidney disease, stage 3 (moderate); D63.1 Anemia in chronic kidney disease

== ENCOUNTER 2019-03-01 10:41 | Emergency (ER) | payer MEDICARE, MEDICAID ==
[~2019-03-01] VITALS: Ht 177.8 cm; Wt 90.9 kg
[2019-03-01 10:42] VITALS: TEMP 98.2
[2019-03-01] MEDS ORDERED: MIRALAX PA17 GM/Dose PO (10:50)
[2019-03-01] MEDS ORDERED: CALCITRIOL PO (10:51)
[2019-03-01] MEDS ORDERED: VELTASSA8.4 GM PO (10:52)
[2019-03-01 11:14] LABS: BASO % 0.7 % (0.0-2.0); EOS # 0.3 (0.0-0.7); EOS % 5.4 % (0-4.0); GRAN # 3.7 (1.4-6.5); GRAN % 66.4 % (42.2-75.2); LYMPH % 17.2 % (20.0-51.0); MEAN CELL VOLUME 86 fl (80.0-100.0); MEAN CORPUSCULAR HGB CONC 36 g/dl (33.0-37.0); MEAN PLATELET VOLUME 9.4 fl (7.4-10.4); MONO # 0.6 (0.1-0.6); MONO % 10.1 % (1.7-9.3); PLATELET COUNT 190 K/mm3 (130-400); RED BLOOD COUNT 2.46 M/mm3 (4.20-5.60); REDCELL DISTRIBUTION WIDTH-CV 11.9 % (11.5-14.5)
[2019-03-01 11:17] LABS: HEMATOCRIT 21.1 % (42.0-52.0); HEMOGLOBIN 7.6 g/dl (13.5-18.0); MEAN CORPUSCULAR HEMOGLOBIN 31 pg (27.0-31.0)
[2019-03-01 11:26] LABS: ALANINE AMINOTRANSFERASE 16 U/L (21-72); ALBUMIN 3.1 gm/dL (3.5-5.0); ALKALINE PHOSPHATASE 86 U/L (50-136); ANION GAP 11 mmol/L (7-16); AST,SGOT 18 U/L (15-37); BILIRUBIN,TOTAL 0.4 mg/dL (0.0-1.0); BLOOD UREA NITROGEN 42 mg/dL (9-20); C-REACTIVE PROTEIN 2.9 mg/dL (0.0-0.9); CALCIUM 8.4 mg/dL (8.4-10.2); CARBON DIOXIDE 25 mmol/L (22-30); LIPASE 22 U/L (23-300); POTASSIUM 3.1 mmol/L (3.4-5.0); SODIUM 121 mmol/L (137-145); TOTAL PROTEIN 5.8 gm/dL (6.4-8.2)
[2019-03-01 11:28] LABS: INR 1.3 (0.8-3.0); PROTHROMBIN TIME 14.3 SECONDS (9.7-12.8)
[2019-03-01 11:30] LABS: CHLORIDE 84 mmol/L (98-107); GLUCOSE 36 mg/dL (74-106)
[2019-03-01 11:32] LABS: ACETONE,SERUM NEGATIVE
[2019-03-01 11:35] LABS: TROPONIN-I < 0.012 ng/mL (0.000-0.035)
[2019-03-01 14:04] LABS: COLLECTION METHOD CATHETER
[2019-03-01 14:16] LABS: PH 6 (5-8); SQUAMOUS EPITHELIAL None Seen /hpf; URINE APPEARANCE Clear; URINE BACTERIA None Seen /hpf; URINE BILIRUBIN Negative (NEGATIVE); URINE BLOOD 1+ (NEGATIVE); URINE COLOR Colorless; URINE GLUCOSE Negative (NEGATIVE); URINE KETONE Negative (NEGATIVE); URINE LEUKOCYTE ESTERASE Trace (NEGATIVE); URINE NITRATE Positive (NEGATIVE); URINE PROTEIN(semi-quant) 1+ (NEGATIVE); URINE UROBILINOGEN Negative (NEGATIVE)
[2019-03-01 15:00] VITALS: BP 174/87; PULSE 81
== END 2019-03-01 16:04 | disposition home or self-care (01) ==
LOC: COL.ER 10:41 → MEDICAL 14:42 → COL.ER 14:42
PROVIDERS: Emergency Medicine
DX: E10.649 Type 1 diabetes mellitus with hypoglycemia without coma (principal); E87.70 Fluid overload, unspecified; E87.1 Hypo-osmolality and hyponatremia; E10.22 Type 1 diabetes mellitus with diabetic chronic kidney disease; Z79.4 Long term (current) use of insulin; E10.40 Type 1 diabetes mellitus with diabetic neuropathy, unspecified; Z79.82 Long term (current) use of aspirin; Z79.51 Long term (current) use of inhaled steroids; Z79.02 Long term (current) use of antithrombotics/antiplatelets
CPT/HCPCS: J1170; J1940

== ENCOUNTER → 2019-03-05 | Outpatient (CLI) | payer MEDICARE, MEDICAID | LOC: COL.VAS 14:36 | DX: N18.4 Chronic kidney disease, stage 4 (severe) (principal) | CPT/HCPCS: G0365 ==

== ENCOUNTER 2019-03-11 12:29 | Emergency (ER) | payer MEDICARE, MEDICAID ==
[~2019-03-11] VITALS: Ht 177.8 cm; Wt 90.9 kg
[2019-03-11 12:32] VITALS: TEMP 97
[2019-03-11 13:15] LABS: MEAN CELL VOLUME 91 fl (80.0-100.0); MEAN CORPUSCULAR HGB CONC 34 g/dl (33.0-37.0); PLATELET COUNT 172 K/mm3 (130-400); REDCELL DISTRIBUTION WIDTH-CV 12.5 % (11.5-14.5)
[2019-03-11 13:16] LABS: HEMATOCRIT 19.9 % (42.0-52.0); HEMOGLOBIN 6.8 g/dl (13.5-18.0); MEAN CORPUSCULAR HEMOGLOBIN 31 pg (27.0-31.0)
[2019-03-11 13:33] LABS: ALANINE AMINOTRANSFERASE 15 U/L (21-72); ALBUMIN 3.4 gm/dL (3.5-5.0); ALKALINE PHOSPHATASE 107 U/L (50-136); ANION GAP 12 mmol/L (7-16); AST,SGOT 38 U/L (15-37); BILIRUBIN,TOTAL 0.6 mg/dL (0.0-1.0); BLOOD UREA NITROGEN 61 mg/dL (9-20); CALCIUM 8.5 mg/dL (8.4-10.2); CARBON DIOXIDE 23 mmol/L (22-30); CREATININE, serum 3.65 (0.66-1.25); GLUCOSE 103 mg/dL (74-106); POTASSIUM 3.9 mmol/L (3.4-5.0); TOTAL PROTEIN 6.3 gm/dL (6.4-8.2)
[2019-03-11 13:34] LABS: COLLECTION METHOD CATHETER
[2019-03-11 13:45] LABS: CHLORIDE 79 mmol/L (98-107); SODIUM 115 mmol/L (137-145); TROPONIN-I < 0.012 ng/mL (0.000-0.035)
[2019-03-11 13:48] LABS: LYMPHOCYTE 4 % (20.0-51.0); NEUTROPHILS 96 % (42.0-75.2); PLATELET ESTIMATE NORMAL (NORMAL)
[2019-03-11 14:00] LABS: BUDDING YEAST Present /hpf; MUCOUS Present /lpf; PH 5 (5-8); SQUAMOUS EPITHELIAL 0-2 /hpf; URINE APPEARANCE Cloudy; URINE BACTERIA Rare /hpf; URINE BILIRUBIN Negative (NEGATIVE); URINE BLOOD Negative (NEGATIVE); URINE COLOR Yellow; URINE GLUCOSE Negative (NEGATIVE); URINE KETONE Negative (NEGATIVE); URINE LEUKOCYTE ESTERASE 2+ (NEGATIVE); URINE NITRATE Negative (NEGATIVE); URINE PROTEIN(semi-quant) 2+ (NEGATIVE); URINE RBC 20-50 /hpf; URINE UROBILINOGEN Negative (NEGATIVE)
[2019-03-11 16:15] VITALS: BP 164/96; PULSE 79
== END 2019-03-11 16:15 | disposition short-term general hospital (02) ==
LOC: COL.ER 12:29
PROVIDERS: Emergency Medicine
DX: I50.9 Heart failure, unspecified (principal); D64.9 Anemia, unspecified; E87.1 Hypo-osmolality and hyponatremia; E10.9 Type 1 diabetes mellitus without complications; F17.210 Nicotine dependence, cigarettes, uncomplicated
CPT/HCPCS: A4216; J0696; J1940; J2060; J2930; J7030

== ENCOUNTER → 2019-04-02 | Outpatient (CLI) | payer MEDICARE, MEDICAID | LOC: BHSO 09:38 | DX: F06.32 Mood disorder due to known physiological condition with major depressive-like episode (principal) | CPT/HCPCS: G0463 ==

== ENCOUNTER → 2019-05-20 | Outpatient (CLI) | payer MEDICARE, MEDICAID | LOC: BHSO 10:58 | DX: F06.32 Mood disorder due to known physiological condition with major depressive-like episode (principal) | CPT/HCPCS: G0463 ==

== ENCOUNTER 2019-05-29 09:08 | Emergency (ER) | payer MEDICARE, MEDICAID ==
[~2019-05-29] VITALS: Ht 177.8 cm; Wt 82.2 kg
[2019-05-29 09:15] VITALS: TEMP 98.3
[2019-05-29 09:32] LABS: BASO # 0.1 (0.0-0.2); BASO % 0.9 % (0.0-2.0); EOS # 0.5 (0.0-0.7); EOS % 6.8 % (0-4.0); GRAN % 60.7 % (42.2-75.2); HEMOGLOBIN 11.7 g/dl (13.5-18.0); LYMPH # 1.4 (1.2-3.4); LYMPH % 20.5 % (20.0-51.0); MEAN CELL VOLUME 88 fl (80.0-100.0); MEAN CORPUSCULAR HEMOGLOBIN 31 pg (27.0-31.0); MEAN CORPUSCULAR HGB CONC 36 g/dl (33.0-37.0); MEAN PLATELET VOLUME 9.8 fl (7.4-10.4); MONO # 0.7 (0.1-0.6); MONO % 10.6 % (1.7-9.3); PLATELET COUNT 188 K/mm3 (130-400); RED BLOOD COUNT 3.73 M/mm3 (4.20-5.60); REDCELL DISTRIBUTION WIDTH-CV 13.2 % (11.5-14.5)
[2019-05-29 09:34] LABS: HEMATOCRIT 32.7 % (42.0-52.0)
[2019-05-29 09:43] LABS: ALANINE AMINOTRANSFERASE 15 U/L (21-72); ALBUMIN 3.8 gm/dL (3.5-5.0); ALKALINE PHOSPHATASE 74 U/L (50-136); ANION GAP 15 mmol/L (7-16); AST,SGOT 25 U/L (15-37); BILIRUBIN,TOTAL 0.6 mg/dL (0.0-1.0); BLOOD UREA NITROGEN 24 mg/dL (9-20); CALCIUM 9.1 mg/dL (8.4-10.2); CARBON DIOXIDE 24 mmol/L (22-30); CHLORIDE 91 mmol/L (98-107); CREATININE, serum 2.93 (0.66-1.25); GLUCOSE 137 mg/dL (74-106); LIPASE 42 U/L (23-300); POTASSIUM 3.4 mmol/L (3.4-5.0); SODIUM 131 mmol/L (137-145); TOTAL PROTEIN 6.3 gm/dL (6.4-8.2)
[2019-05-29 09:54] LABS: TROPONIN-I < 0.012 ng/mL (0.000-0.035)
[2019-05-29 10:30] LABS: COLLECTION METHOD CATHETER
[2019-05-29 10:52] LABS: BUDDING YEAST Present /hpf; MUCOUS Present /lpf; PH 5 (5-8); SQUAMOUS EPITHELIAL 0-2 /hpf; URINE APPEARANCE Cloudy; URINE BACTERIA Rare /hpf; URINE BILIRUBIN Negative (NEGATIVE); URINE BLOOD 1+ (NEGATIVE); URINE COLOR Yellow; URINE GLUCOSE Negative (NEGATIVE); URINE KETONE Negative (NEGATIVE); URINE LEUKOCYTE ESTERASE 2+ (NEGATIVE); URINE NITRATE Negative (NEGATIVE); URINE PROTEIN(semi-quant) 2+ (NEGATIVE); URINE UROBILINOGEN Negative (NEGATIVE)
[2019-05-29] MEDS ORDERED: CATAPRES0.2 MG PO (11:09)
[2019-05-29] MEDS ORDERED: RELISTOR150 MG PO (11:27)
[2019-05-29] MEDS ORDERED: MYRBETR50MG PO (11:29)
[2019-05-29] MEDS ORDERED: AMITIZA24 MCG PO (11:30)
[2019-05-29] MEDS ORDERED: RESTORIL 1515 MG/CAP PO (11:31)
[2019-05-29] MEDS ORDERED: SENNA-LAX8.6 MG PO (11:31)
[2019-05-29] MEDS ORDERED: ZYPREXA 5MG5 MG PO (11:32)
[2019-05-29] MEDS ORDERED: LEVAQUIN 2250 MG/TAB PO (11:33)
[2019-05-29] MEDS ORDERED: PHENERGAN 25 TA25 MG PO (11:50)
[2019-05-29 12:23] VITALS: BP 107/62; PULSE 84
[2019-05-30] MEDS ORDERED: DIFLUCAN150 MG PO (14:56)
== END 2019-05-29 12:33 | disposition home or self-care (01) ==
LOC: COL.ER 09:08
PROVIDERS: Emergency Medicine
DX: R11.2 Nausea with vomiting, unspecified (principal); E87.1 Hypo-osmolality and hyponatremia; E10.22 Type 1 diabetes mellitus with diabetic chronic kidney disease; I12.0 Hypertensive chronic kidney disease with stage 5 chronic kidney disease or end stage renal disease; N18.6 End stage renal disease; F17.210 Nicotine dependence, cigarettes, uncomplicated; Z79.82 Long term (current) use of aspirin; Z79.1 Long term (current) use of non-steroidal anti-inflammatories (NSAID); Z89.511 Acquired absence of right leg below knee; Z99.2 Dependence on renal dialysis
CPT/HCPCS: J2060; J2550; J7050

== ENCOUNTER → 2019-06-30 | Outpatient (CLI) | payer MEDICARE, MEDICAID ==
[~2019-06-30] MED LIST changes: +AMITIZA24 MCG PO; +CATAPRES0.2 MG PO; +DIFLUCAN150 MG PO; +MYRBETR50MG PO; +RELISTOR150 MG PO; +RESTORIL 1515 MG/CAP PO; +SENNA-LAX8.6 MG PO; +ZYPREXA 5MG5 MG PO
[2019-06-30 17:31] LABS: COLLECTION METHOD CATHETER
[2019-06-30 17:52] LABS: MUCOUS Present /lpf; PH 5 (5-8); SQUAMOUS EPITHELIAL None Seen /hpf; URINE APPEARANCE Clear; URINE BACTERIA Rare /hpf; URINE BILIRUBIN Negative (NEGATIVE); URINE BLOOD 1+ (NEGATIVE); URINE COLOR Yellow; URINE GLUCOSE Negative (NEGATIVE); URINE KETONE Negative (NEGATIVE); URINE LEUKOCYTE ESTERASE 3+ (NEGATIVE); URINE NITRATE Negative (NEGATIVE); URINE PROTEIN(semi-quant) 1+ (NEGATIVE); URINE UROBILINOGEN Negative (NEGATIVE)
== END ==
LOC: ZCOL.LAB 17:24
PROVIDERS: Urology
DX: N39.0 Urinary tract infection, site not specified (principal)

== ENCOUNTER 2019-07-21 09:51 | Outpatient (CLI) | payer MEDICARE, MEDICAID ==
[2019-07-21] VITALS (7 sets, daily range): BP systolic 121–145; BP diastolic 73–84; PULSE 73–87; TEMP 97.5
[~2019-07-21] VITALS: Ht 177.8 cm; Wt 84.9 kg
[2019-07-21] MEDS ORDERED: NORVASC 10MG10 MG PO (10:52)
--- NOTE | 2019-07-21 11:55 | NUR ---
ALL MEDICATIONS GIVEN VORB WITH MD. SEE MERGE FOR ALL MEDICATION ADMIN TIMES. SEE MERGE FOR ALL RASS ASSESSMENTS DURING AND POST PROCEDURE.
--- NOTE | 2019-07-21 12:45 | NUR ---
pt to eu 9 via bed from mineral ore processing labourer, pt is sleepy, c/o being cold has warm blankets on. bandaids x2 in place to left arm clean and dry. ordered m eal
--- NOTE | 2019-07-21 13:15 | NUR ---
pt sits up in bed, eats lunch, no c/o
--- NOTE | 2019-07-21 14:15 | NUR ---
reviewed discharge inst. with pt on bleeding possibilities, also activity with moderate sedation reviewed with verbal understanding. IV d'cd intact, pt up in w/c, transferred self with standby assist. Kinesiology Professor from [address] [place] [address] at 1435 and discharged via own w/c to car with discharge inst.
== END 2019-07-21 14:40 | disposition home or self-care (01) ==
LOC: COL.CAR 09:51
DX: T82.858A Stenosis of other vascular prosthetic devices, implants and grafts, initial encounter (principal); F17.210 Nicotine dependence, cigarettes, uncomplicated; N18.9 Chronic kidney disease, unspecified; Z89.511 Acquired absence of right leg below knee; Z82.3 Family history of stroke
CPT/HCPCS: J1644; J2250; J3010; J7050; Q9967

== ENCOUNTER 2019-07-29 06:57 | Emergency (ER) | payer MEDICARE, MEDICAID ==
[~2019-07-29] VITALS: Ht 177.8 cm; Wt 84.0 kg
[2019-07-29 07:43] LABS: ALBUMIN 3.8 gm/dL (3.5-5.0); BILIRUBIN,TOTAL 0.7 mg/dL (0.0-1.0); CALCIUM 9.2 mg/dL (8.4-10.2); POTASSIUM 3.4 mmol/L (3.4-5.0); TOTAL PROTEIN 6.4 gm/dL (6.4-8.2)
[2019-07-29 07:44] LABS: CREATININE, serum 5.01 (0.66-1.25)
[2019-07-29 07:46] LABS: BASO # 0.1 (0.0-0.2); BASO % 0.3 % (0.0-2.0); EOS # 0.4 (0.0-0.7); EOS % 2.4 % (0-4.0); GRAN % 86.5 % (42.2-75.2); HEMOGLOBIN 10.1 g/dl (13.5-18.0); LYMPH # 0.8 (1.2-3.4); LYMPH % 4.8 % (20.0-51.0); MEAN CELL VOLUME 90 fl (80.0-100.0); MEAN CORPUSCULAR HEMOGLOBIN 32 pg (27.0-31.0); MEAN CORPUSCULAR HGB CONC 35 g/dl (33.0-37.0); MONO # 0.9 (0.1-0.6); MONO % 5.6 % (1.7-9.3); PLATELET COUNT 177 K/mm3 (130-400); RED BLOOD COUNT 3.18 M/mm3 (4.20-5.60); REDCELL DISTRIBUTION WIDTH-CV 12.9 % (11.5-14.5)
[2019-07-29 07:48] LABS: HEMATOCRIT 28.7 % (42.0-52.0)
[2019-07-29 08:23] LABS: MUCOUS Present /lpf; PH 5 (5-8); SQUAMOUS EPITHELIAL 0-2 /hpf; URINE APPEARANCE Cloudy; URINE BACTERIA Rare /hpf; URINE BILIRUBIN Negative (NEGATIVE); URINE BLOOD Negative (NEGATIVE); URINE COLOR Yellow; URINE GLUCOSE Negative (NEGATIVE); URINE KETONE Negative (NEGATIVE); URINE LEUKOCYTE ESTERASE 3+ (NEGATIVE); URINE NITRATE Negative (NEGATIVE); URINE PROTEIN(semi-quant) 1+ (NEGATIVE); URINE UROBILINOGEN Negative (NEGATIVE)
[2019-07-29 08:26] LABS: TRICYCLIC ANTIDEPRESS URINE POSITIVE
[2019-07-29] MEDS ORDERED: OMNICEF 300MG300 MG PO (09:05)
[2019-07-29 09:07] VITALS: TEMP 96.8
[2019-07-29 09:35] VITALS: BP 106/68; PULSE 78
[2019-07-29 10:58] LABS: COLLECTION METHOD IN
== END 2019-07-29 09:35 | disposition home or self-care (01) ==
LOC: COL.ER 06:57
PROVIDERS: Emergency Medicine
DX: E11.649 Type 2 diabetes mellitus with hypoglycemia without coma (principal); E11.22 Type 2 diabetes mellitus with diabetic chronic kidney disease; N18.6 End stage renal disease; Z79.82 Long term (current) use of aspirin; Z79.4 Long term (current) use of insulin
CPT/HCPCS: J0696; J7030

== ENCOUNTER 2019-08-10 10:57 | Day surgery (SDC) | payer MEDICARE, MEDICAID ==
[~2019-08-10] VITALS: Ht 180.3 cm; Wt 82.5 kg
[2019-08-10] MEDS ORDERED: DULCOLAX S10 MG/SUPP RC (11:56)
[2019-08-10] MEDS ORDERED: LASIX 40MG TABL40 MG PO (11:57)
[2019-08-10] MEDS ORDERED: FLONASEALLERGY NS (11:57)
[2019-08-10] MEDS ORDERED: ROBAXIN 75750 MG/TAB PO (11:59)
[2019-08-10] MEDS ORDERED: LINZESS145CAP PO (11:59)
[2019-08-10] MEDS ORDERED: REGLAN 5MG T5 MG/TAB PO (12:00)
--- NOTE | 2019-08-10 12:00 | NUR ---
Pt reports that he regularly takes protonix and reglan. Notified OYSTER CULTIVATOR, Raul Howard, and he gave order to hold preop doses of reglan and pepcid.
[2019-08-10] MEDS ORDERED: SEROQUEL 1100 MG/TAB PO (12:01)
[2019-08-10 12:02] VITALS: BP 123/72; PULSE 78; TEMP 97.8
[2019-08-10 15:00] VITALS: BP 124/90; PULSE 75
--- NOTE | 2019-08-10 15:00 | NUR ---
Pt in room, already asking to change. In report with SOLAR ENGINEER, it was said that Dr. Aguilar would like patient to stay at the hospital for observation overnight; pt, however, was adamant about going home and MARV. Educated patient about the risks of going home against medical advice and reviewed how he would check status/patency of catheter if at home by himself (because he is blind). Pt states he is only alone from 7-10 pm, and he will have home aids check. Reiterated with patient that his catheter tubing is bright red and contains clots. Also reminded patient that catheter did clot after procedure and SOLAR ENGINEER had to flush cather with 500 mL of NS to regain patency. Pt acknowledges and expresses understanding, however, was very adamant that he will go home. Notified Dr. Aguilar regarding pt wanting to go home, and states that pt must sign a form indicating that he is being discharged AMA. This RN notified pt, and he agrees to do so.
[2019-08-10 15:25] VITALS: BP 130/83; PULSE 77
--- NOTE | 2019-08-10 15:25 | NUR ---
Pt still adamant about going home, and he states that he feels fine and is ready to go. Pt denies any pain except his chronic pain 6/10 in his lower back. He also denies any nausea vomiting. VSS are stable and WNL. Reviewed discharge instructions with patient including the necessity that he comes in to ED if his catheter clots. Also, reviewed with patient infection symptoms and the need to call dr if any adverse symptoms arise. Patient agrees and expresses understanding. This RN read AMA form to patient, and he signed form aware of ramifications of his decision. Pt was picked up by health aid, Heavenly, and she wheeled him down to personal car upon exit of hospital. Dr. Aguilar made aware of pt leaving hospital AMA.
[2019-08-10 16:35] VITALS: BP 144/79; PULSE 77; TEMP 97.9
[2019-08-11] VITALS (31 sets, daily range): O2SAT 90–100
[2019-08-12] VITALS (517 sets, daily range): O2SAT 79–100
== END 2019-08-10 15:45 | disposition home or self-care (01) ==
LOC: SDCO 10:57
DX: N39.41 Urge incontinence (principal); N32.81 Overactive bladder; R35.0 Frequency of micturition; E10.22 Type 1 diabetes mellitus with diabetic chronic kidney disease; E10.40 Type 1 diabetes mellitus with diabetic neuropathy, unspecified; I12.0 Hypertensive chronic kidney disease with stage 5 chronic kidney disease or end stage renal disease; N18.6 End stage renal disease; N17.9 Acute kidney failure, unspecified; N52.1 Erectile dysfunction due to diseases classified elsewhere; K21.9 Gastro-esophageal reflux disease without esophagitis; G89.29 Other chronic pain; E87.1 Hypo-osmolality and hyponatremia; K59.00 Constipation, unspecified; I63.9 Cerebral infarction, unspecified; D64.9 Anemia, unspecified; F17.210 Nicotine dependence, cigarettes, uncomplicated; Z99.2 Dependence on renal dialysis; Z89.511 Acquired absence of right leg below knee; Z79.899 Other long term (current) drug therapy; Z79.02 Long term (current) use of antithrombotics/antiplatelets; Z79.891 Long term (current) use of opiate analgesic; Z88.8 Allergy status to other drugs, medicaments and biological substances; Z79.4 Long term (current) use of insulin; Z79.82 Long term (current) use of aspirin
CPT/HCPCS: A4215; J0585; J0690; J1100; J2250; J2405; J2704; J3010; J7030

== ENCOUNTER 2019-08-10 19:04 | Inpatient (IN) | payer MEDICARE, MEDICAID ==
[~2019-08-10] VITALS: Ht 180.3 cm; Wt 82.2 kg
[~2019-08-10 19:04] MED LIST changes: +LINZESS145CAP PO; +REGLAN 5MG T5 MG/TAB PO; +SEROQUEL 1100 MG/TAB PO
[2019-08-10 22:16] LABS: BASO # 0.1 (0.0-0.2); BASO % 0.5 % (0.0-2.0); EOS # 0.3 (0.0-0.7); EOS % 1.7 % (0-4.0); GRAN # 15.5 (1.4-6.5); GRAN % 88.7 % (42.2-75.2); LYMPH % 5.6 % (20.0-51.0); MEAN CELL VOLUME 94 fl (80.0-100.0); MEAN CORPUSCULAR HGB CONC 34 g/dl (33.0-37.0); MEAN PLATELET VOLUME 10.1 fl (7.4-10.4); MONO # 0.5 (0.1-0.6); PLATELET COUNT 212 K/mm3 (130-400); RED BLOOD COUNT 2.55 M/mm3 (4.20-5.60); REDCELL DISTRIBUTION WIDTH-CV 13.5 % (11.5-14.5)
[2019-08-10 22:17] LABS: HEMATOCRIT 23.9 % (42.0-52.0); HEMOGLOBIN 8.1 g/dl (13.5-18.0); MEAN CORPUSCULAR HEMOGLOBIN 32 pg (27.0-31.0)
[2019-08-10 22:25] LABS: ALBUMIN 3.8 gm/dL (3.5-5.0); BILIRUBIN,TOTAL 0.6 mg/dL (0.0-1.0); CALCIUM 8.5 mg/dL (8.4-10.2); CREATININE, serum 4.95 (0.66-1.25); POTASSIUM 3.9 mmol/L (3.4-5.0); TOTAL PROTEIN 6.3 gm/dL (6.4-8.2)
[2019-08-11] VITALS (14 sets, daily range): BP systolic 75–112; BP diastolic 34–57; PULSE 76–92; TEMP 97.8–98.5
--- NOTE | 2019-08-11 01:59 | NUR ---
Pt. arrived to the floor around 2344. Pt. was A&OX3. Pt. has a suprapubic cathater and urethral ragland catheter. Both catheters with dark bloody drainage. Pt. reports that ER staff told him that the nurses on the floor would irrigate catheters upon arrival to the floor. Pt. irrigated for about 20 minutes with minimal clot removal. Dr. Levi called and discussed options of placing CBI. Dr. Levi gave orders. Continued to attempt manual irrigation of both suprapubic and urethral catheters. Able to get suprapubic to flow. Plan was to place CBI to suprapubic catheter and let irrigate out the urethral ragland. Unable to get urethral ragland to unblock. Dr. Levi called again to discuss changing catheter out for bigger size. 18Fr. removed Placed a 22Fr. three-way ragland. Then irrigated about 500 mls of blood clots out of bladder. Attempted hooking irrigation to suprapubic and plugging three-way ragland CBI port. This did not work continued to have difficulties with draining. Then plugged the suprapubic catheter and placed irrigation to three way ragland which then worked. Several times had to continue to irrigate clots out of the ragland. CBI currently running wide open. Spent about 2 hrs. with issues with clotting. Currently running well now. Will closely monitor for clotting.
[2019-08-11 02:11] LABS: HEMATOCRIT 20.9 % (42.0-52.0); HEMOGLOBIN 7.1 g/dl (13.5-18.0)
--- NOTE | 2019-08-11 03:19 | NUR ---
Checked MRSA status. Pt. has had 2 neg swabs, per our records.
--- NOTE | 2019-08-11 03:50 | NUR ---
Patient yelling out for help due to pain in lower abdomen. Catheter irrigated and blood clots removed. Estevez begins to drain light pink and patient pain is better. Two bags of NS for irrigation, 3000mL each, hung for continuous bladder irrigation. Patient lying in bed on right side. Respirations even and unlabored. Call light in reach.
--- NOTE | 2019-08-11 06:39 | NUR ---
Pt. has had to be irrigated 5-6 times through the night. CBI and urine output off due to frequent irrigation. Pt. tolerating well. Pt. has had lots of clots out with every irrigation.
[2019-08-11 07:03] LABS: BASO # 0.1 (0.0-0.2); BASO % 0.4 % (0.0-2.0); EOS % 0.2 % (0-4.0); GRAN # 10.8 (1.4-6.5); GRAN % 85.8 % (42.2-75.2); LYMPH # 1.2 (1.2-3.4); LYMPH % 9.5 % (20.0-51.0); MEAN CELL VOLUME 96 fl (80.0-100.0); MEAN CORPUSCULAR HGB CONC 34 g/dl (33.0-37.0); MEAN PLATELET VOLUME 10.5 fl (7.4-10.4); MONO # 0.4 (0.1-0.6); MONO % 3.5 % (1.7-9.3); PLATELET COUNT 203 K/mm3 (130-400); RED BLOOD COUNT 1.91 M/mm3 (4.20-5.60); REDCELL DISTRIBUTION WIDTH-CV 13.9 % (11.5-14.5)
[2019-08-11 07:11] LABS: CALCIUM 8.2 mg/dL (8.4-10.2); MAGNESIUM 2.1 mg/dL (1.6-2.3); PHOSPHOROUS 6.5 mg/dL (2.5-4.5); POTASSIUM 4.5 mmol/L (3.4-5.0)
[2019-08-11 07:14] LABS: HEMATOCRIT 18.4 % (42.0-52.0); HEMOGLOBIN 6.2 g/dl (13.5-18.0); MEAN CORPUSCULAR HEMOGLOBIN 32 pg (27.0-31.0)
[2019-08-11 07:18] LABS: CREATININE, serum 5.68 (0.66-1.25)
--- NOTE | 2019-08-11 08:00 | NUR ---
Patient's catheter continues to clot off. Have been irrigating for about 45 mins to get the catheter to flow. CBI is running at a rapid rate. Output is clear pink but when you irrigate there is a large amount of clots returned. Catheter is secured to right leg. Patient continues to state he does no feel well and is having some nausea. When asking the patient questions at first his speech sounds like babble. His speech clears up and patient is oriented X4. No other changes at this time. Call light within reach.
--- NOTE | 2019-08-11 10:24 | NUR ---
warp worker attended clinical rounds with patient. Patient is oriented, however, verbalizes some confusion. Worker left message for patient's father, West Es[place], to discuss home situation and discharge planning.
--- NOTE | 2019-08-11 11:33 | NUR ---
Blood transfusion infusing. Protocol followed. Blood check with Aristeo Lynch RN. Explained adverse signs and symptoms to patient. He verbalized understanding. Blood infusing at 60ml an hour at this time. No other changes at this time. Patient is resting comfortably.
--- NOTE | 2019-08-11 11:50 | NUR ---
Blood is transfusing. Patient is tolerating transfusion. No complaints of pain or changes to vitals/mentality. Irrigating catheter again. No other changes at this time. Call light within reach.
--- NOTE | 2019-08-11 13:00 | NUR ---
Patient has been transferred to Express unit for dialysis. Blood is transfusing. Dialysis nurse will finish transfusion. Urine is light pink/clear. Have not had to irrigate catheter in about 30 mins. Have been irrigating every 15-30mins this am. No other changes at this time.
[2019-08-11 16:03] LABS: HEMATOCRIT 24.3 % (42.0-52.0); HEMOGLOBIN 8.2 g/dl (13.5-18.0)
--- NOTE | 2019-08-11 18:00 | NUR ---
Patient is back from his cystoscopy. He denies pain. Output in ragland is clear, no clots noted. Turned down CBI flow. Patient is upset about having to have surgery and that his day did not go well. Offered to order him supper but patient refused. No other changes at this time. Call light within reach.
--- NOTE | 2019-08-11 19:23 | NUR ---
Sitting up in bed, mother in room. Patient explains that he is feeling better, still having a little discomfort but not compared to what it was. CBI into suprapubic catheter and draining clear fluid from indwelling urethral catheter. Patient expresses discomfort at urethral catheter site. Having discomfort to sacral area where he has healing coccygeal stage 1 sores. Patient denies needs at this time.
--- NOTE | 2019-08-11 21:10 | NUR ---
Notified of low blood pressure-70s/40s. This nurse to room to evaluate and recheck blood pressure. ARELI Harden already at bedside conversating with patient. A&O to person, place, situation but not time. Slurred speech which is normal for him. Adjusted blood pressure cuff and rechecked-70s/40s. Manual blood pressure done by this nurse x3-88/56, 92/60 and 82/48. States he feels fine just tired-did drink a small amount of water. Blood pressure 84/48 manual. Attempt made to contact Hospitalist-went straight to busy signal x2. ARELI Harden remains at bedside conversating with patient while this nurse verifies high school special education teacher hospitalist. Bedside glucose done-238.
--- NOTE | 2019-08-11 21:22 | NUR ---
Patient BP low. Patient able to speak and hold conversation without difficulty. Taking PO fluids okay but does not want to overdo how much fluids he is drinking. ARELI Diaz, calling to get ini contact with hospitalist to inform them of low BP. Catherter continues to drain clear light yellow drainage. Patient in no acute discomfort.
--- NOTE | 2019-08-11 21:40 | NUR ---
Current blood pressure 92/58 manually. Discussing HS insulin dose with ARELI Harden-states he doesnt want to take his full dose. Hospitalist notified of previous low blood pressures. New orders received to transfer to ICU-will call with bed assignment. Will wait for call back.
--- NOTE | 2019-08-11 21:41 | NUR ---
Patient agrees to take Levemir but instead of the 12unit dose he only wants to take 6units because of lack of appetite and not eating and also at home his levels were decreasing significantly in the night.
--- NOTE | 2019-08-11 21:53 | NUR ---
ARELI Harden remains at bedside conversating with this nurse to room to update on transfer to ICU bed 4. New orders received and initiated. NS bolus started-lab notified of STAT labs. ARELI Harden called nurse to nurse report while this nurse and PCT move to ICU. TESSA Echevarria in room to discuss situation with patient.
--- NOTE | 2019-08-11 22:00 | NUR ---
Contacted ICU and spoke with Jim and provided report to transfer patient due to low BP's. Current BP 78/35, pulse 80, SpO2 97%. CBI patent, light clear yellow/faint pink fluid in catheter bag.
--- NOTE | 2019-08-11 22:05 | NUR ---
Patient transferred via bed with staff to ICU. All belongings brought to the ICU with the patient.
--- NOTE | 2019-08-11 22:05 | NUR ---
Patient arrived to ICU accompanied by Surgical, RN. HANS Roberts outside of room and notified of arrival, will assume care of patient at this time.
[2019-08-11 22:45] LABS: BASO % 0.2 % (0.0-2.0); EOS % 0.1 % (0-4.0); GRAN % 83.8 % (42.2-75.2); LYMPH # 1.4 (1.2-3.4); LYMPH % 7.5 % (20.0-51.0); MEAN CELL VOLUME 95 fl (80.0-100.0); MEAN CORPUSCULAR HGB CONC 33 g/dl (33.0-37.0); MEAN PLATELET VOLUME 10.8 fl (7.4-10.4); MONO # 1.5 (0.1-0.6); MONO % 7.7 % (1.7-9.3); PLATELET COUNT 146 K/mm3 (130-400); RED BLOOD COUNT 2.06 M/mm3 (4.20-5.60); REDCELL DISTRIBUTION WIDTH-CV 15.1 % (11.5-14.5)
[2019-08-11 22:47] LABS: HEMATOCRIT 19.5 % (42.0-52.0); HEMOGLOBIN 6.5 g/dl (13.5-18.0); MEAN CORPUSCULAR HEMOGLOBIN 32 pg (27.0-31.0)
[2019-08-11 22:52] LABS: ARTERIAL BLD GAS TCO2 CT 15.5; ARTERIAL BLOOD GAS BASE EXCESS -10.8 (-2-2); ARTERIAL BLOOD GAS HCO3 14.6 meq/L (22-26); ARTERIAL BLOOD GAS PO2 63.1 mmHg (80-100)
[2019-08-11 22:52] LABS: CALCIUM 7.5 mg/dL (8.4-10.2); POTASSIUM 4.2 mmol/L (3.4-5.0)
[2019-08-11 22:56] LABS: CREATININE, serum 4.75 (0.66-1.25)
[2019-08-11 23:04] LABS: INR 1.1 (0.8-3.0); PROTHROMBIN TIME 12.4 SECONDS (9.7-12.8)
[2019-08-11 23:05] LABS: TROPONIN-I 0.072 ng/mL (0.000-0.035)
[2019-08-11 23:06] LABS: PARTIAL THROMBOPLASTIN TIME 28.4 SECONDS (26.0-37.0)
[2019-08-12] VITALS (13 sets, daily range): BP systolic 102–142; BP diastolic 54–75; PULSE 57–90; TEMP 97.5–998.6
[2019-08-12 05:55] LABS: MEAN CELL VOLUME 92 fl (80.0-100.0); MEAN CORPUSCULAR HGB CONC 34 g/dl (33.0-37.0); MEAN PLATELET VOLUME 10.9 fl (7.4-10.4); PLATELET COUNT 163 K/mm3 (130-400); RED BLOOD COUNT 2.44 M/mm3 (4.20-5.60); REDCELL DISTRIBUTION WIDTH-CV 15.1 % (11.5-14.5)
[2019-08-12 06:01] LABS: ALBUMIN 3.2 gm/dL (3.5-5.0); BILIRUBIN,TOTAL 0.6 mg/dL (0.0-1.0); CALCIUM 7.6 mg/dL (8.4-10.2); POTASSIUM 4.3 mmol/L (3.4-5.0); TOTAL PROTEIN 5.4 gm/dL (6.4-8.2)
[2019-08-12 06:03] LABS: HEMATOCRIT 22.5 % (42.0-52.0); HEMOGLOBIN 7.7 g/dl (13.5-18.0); INR 1.1 (0.8-3.0); MEAN CORPUSCULAR HEMOGLOBIN 32 pg (27.0-31.0); PROTHROMBIN TIME 12.8 SECONDS (9.7-12.8)
[2019-08-12 06:04] LABS: CREATININE, serum 4.91 (0.66-1.25)
[2019-08-12 06:13] LABS: TROPONIN-I 0.102 ng/mL (0.000-0.035)
[2019-08-12 07:11] LABS: LYMPHOCYTE 10 % (20.0-51.0); NEUTROPHILS 88 % (42.0-75.2)
[2019-08-12 07:12] LABS: PLATELET ESTIMATE NORMAL (NORMAL)
[2019-08-12 07:13] LABS: TOXIC GRANULATION PRESENT
--- NOTE | 2019-08-12 07:30 | NUR ---
Report recieved from ARELI Fernandez. Patient denies needs at this time. INT IV without complication. CBI patent and running at slow rate with pale yellow urine noted. Care assumed at this time.
--- NOTE | 2019-08-12 10:07 | NUR ---
Dr. Ayala rounds at this time. Orders as entered CPOE.
--- NOTE | 2019-08-12 11:10 | NUR ---
Dr. Watkins rounds at this time. Orders as entered CPOE.
--- NOTE | 2019-08-12 13:10 | NUR ---
Dr. Rdz rounds at this time. VORB to DC ragland catheter and place suprapubic catheter to dependent drainage. VORB also recieved for patient transfer orders to the surgical floor. Care ongoing.
--- NOTE | 2019-08-12 13:18 | NUR ---
SERGIO aguayo met with the patient and his mom, Fatuma to discuss a discharge plan. The patient lives in [place] with his dad, West and patient's son 16 year old son, Croy. The patient is wheelchair bound and reports independence with ADLs. The patient has an aide from [address] [place] [address] and home health services through [facility]. The patient's PCP is Dr. Vigil and patient recently changed to [facility] for his medication needs. The patient does not have advanced directives in the EMR. The patient plans to return home upon discharge. The patient reports his mom will provide transportation. Jeevan from [facility] contacted MEAT DEPARTMENT MANAGERRosa Maria aguayo and asked for updates. MEAT DEPARTMENT MANAGER student faxed updates to [facility]. The patient is to tranfer to surgical floor today, 08/12. At discharge, the patient will need home health orders to continue home health service with [facility] Social service will continue to follow to ensure safe discharge.
--- NOTE | 2019-08-12 14:36 | NUR ---
Report called to ARELI Olivas.
--- NOTE | 2019-08-12 15:00 | NUR ---
PATIENT ADMITED INTO ROOM 346 FROM ICU. PATIENT IS A&O. VSS. DENIES PAIN AT THIS TIME. PATIENT WAS ABLE TO TRANSFER HIMSELF FROM WC TO BED WITH STAND BY ASSIST. PATIENT HAS BEEN AN UNCONTROLLED DIABETIC FOR YEARS AND IS BLIND. PLANS FOR DIALYSIS TOMORROW AND POSSIBLE DISCHARGE DEPENDING ON PATIENT STATUS AND AM LABS. PATIENT HAS A CHRONIC SUPER PUBIC VALIENTE TO DD WITH MOD AMOUNTS OF SHAHZAD COLORED URINE NOTED. RIGHT FORARM IV TO INT. RIGHT CHEST DIALYSIS CATH AND LEFT FORARM FISTULA. HEAD TO TOE ASSESSMENT COMPLETE. MOTHER AT BEDSIDE. CALL LIGHT IN REACH.
--- NOTE | 2019-08-12 15:15 | NUR ---
PATIENT ASKING TO DISCHARGE AND REQUESTING NURSING CALL . DECLINED TO DISCHARGE TODAY. PATIENT NOT HAPPY BUT MOTHER IS TRYING TO TALK HIM INTO STAYING AND NOT LEAVING AMA AGAIN.
[2019-08-12 20:22] LABS: HEMATOCRIT 21.1 % (42.0-52.0); HEMOGLOBIN 7.3 g/dl (13.5-18.0)
--- NOTE | 2019-08-13 01:53 | NUR ---
Patient's mother out to desk several times asking about lab work and medications. Questions answered. This nurse brought patient scheduled night medications and patient was asleep and snoring at this time. Patient asked about getting Dilaudid. Education provided on the medications he was receiving which included pain medication, so he would have to wait to get PRN Dilaudid. Patient became upset and stated that the nursing staff wanted him to suffer and that he was ready to go home so he could get his normal pain medication. This nurse attempted to educate patient, but patient continued to interrupt me and was not accepting to any education. The patient's mother was not helpful in this situation and said, "I know your body has been through a lot baby, I know its been so tough for you." Patient did not call for PRN dilaudid and was noted to be sleeping upon reassessment of pain.
[2019-08-13 03:57] VITALS: BP 137/70; PULSE 81; TEMP 98.1
--- NOTE | 2019-08-13 06:06 | NUR ---
Lab went in to draw blood this morning and it was relayed to this nurse that the patient wanted to talk to me. I went into the patient's room and he is sitting up on the bed with his head resting on his hand. I say, "Javon, I'm Agueda, the nurse, can I help you?" He said, "yes". and proceeded to fall back to sleep, nodding his head off his hand. I again said, "Javon, did you need something from me?" The patient stated, "No." I stated, "The lab is here to draw your blood, is that okay?" The patient stated, "Yes." and was a little more alert at this time. Lab stated he would say ouch and pull his arm slightly away when taking off the coban. Will continue to monitor patient.
[2019-08-13 06:35] LABS: BASO % 0.3 % (0.0-2.0); EOS # 0.3 (0.0-0.7); EOS % 2.8 % (0-4.0); GRAN # 7.3 (1.4-6.5); GRAN % 68.4 % (42.2-75.2); HEMATOCRIT 22.4 % (42.0-52.0); HEMOGLOBIN 7.6 g/dl (13.5-18.0); LYMPH # 1.8 (1.2-3.4); LYMPH % 16.8 % (20.0-51.0); MEAN CELL VOLUME 92 fl (80.0-100.0); MEAN CORPUSCULAR HEMOGLOBIN 31 pg (27.0-31.0); MEAN CORPUSCULAR HGB CONC 34 g/dl (33.0-37.0); MEAN PLATELET VOLUME 10.3 fl (7.4-10.4); MONO # 1.2 (0.1-0.6); MONO % 10.9 % (1.7-9.3); PLATELET COUNT 152 K/mm3 (130-400); RED BLOOD COUNT 2.44 M/mm3 (4.20-5.60); REDCELL DISTRIBUTION WIDTH-CV 15.2 % (11.5-14.5)
[2019-08-13 06:38] LABS: PROTHROMBIN TIME 12.1 SECONDS (9.7-12.8)
[2019-08-13 06:42] LABS: ALANINE AMINOTRANSFERASE < 6 U/L (21-72); ALBUMIN 3.4 gm/dL (3.5-5.0); ALKALINE PHOSPHATASE 63 U/L (50-136); ANION GAP 11 mmol/L (7-16); AST,SGOT 24 U/L (15-37); BILIRUBIN,TOTAL 0.5 mg/dL (0.0-1.0); BLOOD UREA NITROGEN 55 mg/dL (9-20); CALCIUM 8.2 mg/dL (8.4-10.2); CARBON DIOXIDE 23 mmol/L (22-30); CHLORIDE 101 mmol/L (98-107); POTASSIUM 3.6 mmol/L (3.4-5.0); SODIUM 135 mmol/L (137-145); TOTAL PROTEIN 5.7 gm/dL (6.4-8.2)
[2019-08-13 06:47] LABS: CREATININE, serum 5.42 (0.66-1.25); GLUCOSE 29 mg/dL (74-106)
--- NOTE | 2019-08-13 07:30 | NUR ---
Blood glucose level noted to be 40. D50% in water (12.5gm) given via IV to right wrist. IV site noted to infiltrate. Blood glucose level rechecked at 54. Glucose gel given as patient is now more alert. Level rechecked and noted to be 60. Breakfast tray brought to patient and he is now eating. Appears to be more alert to surroundings than this morning. Jessica Sterling notified at 0730. States to continue to monitor blood glucose levels closely. Reported off to ARELI Ferrer.
[2019-08-13 08:00] VITALS: BP 148/86; PULSE 88; TEMP 98
--- NOTE | 2019-08-13 08:00 | NUR ---
UPON ENTRY TO THE ROOM THE PATIENT IS RESTING IN BED. PATIENT IS A&OX4. VSS. BOWEL SOUNDS ACTIVE ALL FOUR QUADRANTS. PATIENT TOLERATING DIET WITHOUT ANY COMPLAINTS OF N/V. DIALYSIS CATHETER TO RIGHT CHEST, DRESSING IS CD&I. SUPRAPUBIC CATHETER DRAINING CLEAR, PALE YELLOW URINE. POSITIVE POPLITEAL PULSES EQUL BILATERALLY. AV FISTULA TO LEFT FOREARM. RESTRICTED EXTREMITY BAND IN PLACE. CALL LIGHT WITHIN REACH. BREAKFAST TRAY AT THE BEDSIDE.
--- NOTE | 2019-08-13 08:35 | NUR ---
PATIENT TAKEN TO DIALYSIS VIA BED TO ROOM 17. WILL WAIT FOR ARRIVAL BACK TO ROOM 346.
[2019-08-13] MEDS ORDERED: LANTUS SOLOS100 U/ML SQ (10:08)
--- NOTE | 2019-08-13 11:48 | NUR ---
PATIENT ARRIVED BACK TO ROOM 346 FROM DIALYSIS.
--- NOTE | 2019-08-13 12:00 | NUR ---
DISCHARGE INSTRUCTIONS REVIEWED WITH PATIENT AND MOTHER. ALL QUESTIONS ANSWERED. PATIENTS RIGHT FOREARM INT DISCONTNIUED PER PENDING DISCHARGE. TIP INTACT. PATIENT TOLERATED WELL.
--- NOTE | 2019-08-13 12:05 | NUR ---
PATIENT PERSONAL BELONGINGS GATHERED. TAKEN TO PERSONAL VEHICE VIA WHEELCHAIR. PATIENT DISCHARGED.
--- NOTE | 2019-08-13 13:56 | NUR ---
The patient discharged back home today, 08/13, with home health services for senior living/PT/OT through [facility] and resumed services from [facility]. CALIXTO contacted and faxed the patient's discharge orders to Madina at [facility]. No additional needs at this time.
== END 2019-08-13 12:05 | disposition home health service (06) | DRG 668 ==
LOC: COL.ER 19:04 → SURG 21:53 → ICU 08-11 22:22 → SURG 08-12 15:00
PROVIDERS: Family Medicine; Hospitalist; Nurse Practitioner Family; Student in an Organized Health Care Education/Training Program; Urology; ADMIT Urology
PROC: 0T9B8ZZ Drainage of Bladder, Via Natural or Artificial Opening Endoscopic (ICD-10-PCS; 2019-08-11)
PROC: 5A1D70Z Performance of Urinary Filtration, Intermittent, Less than 6 Hours Per Day (ICD-10-PCS; 2019-08-11)
PROC: 0T5B8ZZ Destruction of Bladder, Via Natural or Artificial Opening Endoscopic (ICD-10-PCS; principal; 2019-08-11 16:00)
DX: T83.83XA Hemorrhage due to genitourinary prosthetic devices, implants and grafts, initial encounter (principal); I21.A1 Myocardial infarction type 2; N18.6 End stage renal disease; N17.9 Acute kidney failure, unspecified; I12.0 Hypertensive chronic kidney disease with stage 5 chronic kidney disease or end stage renal disease; R33.8 Other retention of urine; E10.22 Type 1 diabetes mellitus with diabetic chronic kidney disease; E10.51 Type 1 diabetes mellitus with diabetic peripheral angiopathy without gangrene; Y83.8 Other surgical procedures as the cause of abnormal reaction of the patient, or of later complication, without mention of misadventure at the time of the procedure; H54.7 Unspecified visual loss; E87.5 Hyperkalemia; D63.1 Anemia in chronic kidney disease; L89.301 Pressure ulcer of unspecified buttock, stage 1; J44.9 Chronic obstructive pulmonary disease, unspecified; G89.29 Other chronic pain; I69.298 Other sequelae of other nontraumatic intracranial hemorrhage; F32.9 Major depressive disorder, single episode, unspecified; K21.9 Gastro-esophageal reflux disease without esophagitis; F17.210 Nicotine dependence, cigarettes, uncomplicated; Z79.02 Long term (current) use of antithrombotics/antiplatelets; Z79.82 Long term (current) use of aspirin; Z79.4 Long term (current) use of insulin; Z99.2 Dependence on renal dialysis; Z86.14 Personal history of Methicillin resistant Staphylococcus aureus infection; Z88.6 Allergy status to analgesic agent; Z89.511 Acquired absence of right leg below knee
CPT/HCPCS: 99223; 99232-AI; 99233-AI; A4216; G0378; J0690; J0692; J1170; J1644; J1815; J2370; J2405; J2704; J3370; J7030; J7050; P9016

== ENCOUNTER → 2019-08-18 | Outpatient (CLI) | payer MEDICARE, MEDICAID | LOC: BHSO 10:35 | DX: F06.32 Mood disorder due to known physiological condition with major depressive-like episode (principal) | CPT/HCPCS: G0463 ==

== ENCOUNTER → 2019-10-01 | Outpatient (CLI) | payer MEDICARE, MEDICAID ==
[2019-10-01 14:42] LABS: COLLECTION METHOD CATHETER
[2019-10-01 14:58] LABS: MUCOUS Present /lpf; PH 6 (5-8); URINE APPEARANCE Turbid; URINE BACTERIA Occasional /hpf; URINE BILIRUBIN Negative (NEGATIVE); URINE BLOOD 1+ (NEGATIVE); URINE COLOR Yellow; URINE GLUCOSE 2+ (NEGATIVE); URINE KETONE Negative (NEGATIVE); URINE LEUKOCYTE ESTERASE 3+ (NEGATIVE); URINE NITRATE Negative (NEGATIVE); URINE PROTEIN(semi-quant) 1+ (NEGATIVE); URINE UROBILINOGEN Negative (NEGATIVE)
== END ==
LOC: ZCOL.LAB 13:24
PROVIDERS: Urology
DX: R33.8 Other retention of urine (principal)

== ENCOUNTER → 2019-10-18 | Outpatient (CLI) | payer MEDICARE, MEDICAID ==
[2019-10-18 19:14] LABS: COLLECTION METHOD CLEAN CATCH
[2019-10-18 19:31] LABS: PH 7 (5-8); SQUAMOUS EPITHELIAL 0-2 /hpf; URINE APPEARANCE Turbid; URINE BACTERIA Occasional /hpf; URINE BILIRUBIN Negative (NEGATIVE); URINE BLOOD 1+ (NEGATIVE); URINE COLOR Amber; URINE GLUCOSE Negative (NEGATIVE); URINE KETONE Negative (NEGATIVE); URINE LEUKOCYTE ESTERASE 2+ (NEGATIVE); URINE NITRATE Negative (NEGATIVE); URINE PROTEIN(semi-quant) 2+ (NEGATIVE); URINE RBC >50 /hpf; URINE UROBILINOGEN Negative (NEGATIVE); URINE WBC >50 /hpf
== END ==
LOC: ZCOL.LAB 18:42
PROVIDERS: Urology
DX: Z43.6 Encounter for attention to other artificial openings of urinary tract (principal); I12.0 Hypertensive chronic kidney disease with stage 5 chronic kidney disease or end stage renal disease; E11.22 Type 2 diabetes mellitus with diabetic chronic kidney disease; N18.9 Chronic kidney disease, unspecified

== ENCOUNTER 2019-10-26 00:14 | Inpatient (IN) | payer MEDICARE, MEDICAID ==
[~2019-10-26] VITALS: Ht 177.8 cm; Wt 74.4 kg
[2019-10-26] VITALS (626 sets, daily range): BP systolic 99–131; BP diastolic 65–75; PULSE 74–93; TEMP 97.4–99; O2SAT 74–100
[2019-10-26 00:47] LABS: BASO % 0.3 % (0.0-2.0); EOS # 0.6 (0.0-0.7); EOS % 4.8 % (0-4.0); GRAN # 9.2 (1.4-6.5); GRAN % 78.1 % (42.2-75.2); LYMPH # 1.3 (1.2-3.4); LYMPH % 10.9 % (20.0-51.0); MEAN CELL VOLUME 94 fl (80.0-100.0); MEAN CORPUSCULAR HGB CONC 34 g/dl (33.0-37.0); MEAN PLATELET VOLUME 10.9 fl (7.4-10.4); MONO # 0.6 (0.1-0.6); MONO % 4.8 % (1.7-9.3); PLATELET COUNT 129 K/mm3 (130-400); RED BLOOD COUNT 2.91 M/mm3 (4.20-5.60); REDCELL DISTRIBUTION WIDTH-CV 13.2 % (11.5-14.5)
[2019-10-26 00:48] LABS: HEMATOCRIT 27.2 % (42.0-52.0); HEMOGLOBIN 9.3 g/dl (13.5-18.0); MEAN CORPUSCULAR HEMOGLOBIN 32 pg (27.0-31.0)
[2019-10-26 00:57] LABS: ACETAMINOPHEN < 10 ug/mL (10-30); ALANINE AMINOTRANSFERASE 14 U/L (21-72); ALBUMIN 3.4 gm/dL (3.5-5.0); ALCOHOL(ethanol),MEDICAL < 10 mg/dL; ALKALINE PHOSPHATASE 105 U/L (50-136); ANION GAP 15 mmol/L (7-16); AST,SGOT 29 U/L (15-37); BILIRUBIN,TOTAL 0.8 mg/dL (0.0-1.0); BLOOD UREA NITROGEN 47 mg/dL (9-20); CALCIUM 8.4 mg/dL (8.4-10.2); CARBON DIOXIDE 21 mmol/L (22-30); CHLORIDE 96 mmol/L (98-107); CREATININE, serum 4.79 (0.66-1.25); GLUCOSE 174 mg/dL (74-106); LIPASE 58 U/L (23-300); MAGNESIUM 1.8 mg/dL (1.6-2.3); PHOSPHOROUS 4.3 mg/dL (2.5-4.5); POTASSIUM 3.3 mmol/L (3.4-5.0); SODIUM 132 mmol/L (137-145); TOTAL PROTEIN 6.3 gm/dL (6.4-8.2)
[2019-10-26 01:07] LABS: TROPONIN-I < 0.012 ng/mL (0.000-0.035)
[2019-10-26 01:39] LABS: COLLECTION METHOD CATHETER
[2019-10-26 01:53] LABS: TRICYCLIC ANTIDEPRESS URINE POSITIVE
[2019-10-26 01:55] LABS: PH 6 (5-8); URINE APPEARANCE Turbid; URINE BACTERIA Rare /hpf; URINE BILIRUBIN Negative (NEGATIVE); URINE BLOOD 1+ (NEGATIVE); URINE COLOR Yellow; URINE GLUCOSE Negative (NEGATIVE); URINE KETONE Negative (NEGATIVE); URINE LEUKOCYTE ESTERASE 3+ (NEGATIVE); URINE NITRATE Negative (NEGATIVE); URINE PROTEIN(semi-quant) 2+ (NEGATIVE); URINE RBC 20-50 /hpf; URINE UROBILINOGEN Negative (NEGATIVE)
[2019-10-26 01:56] LABS: BUDDING YEAST Present /hpf
--- NOTE | 2019-10-26 13:49 | NUR ---
Production Editor met with the patient to discuss discharge planning. Patient states he lives in [place] with his son, Cory who is sixteen years old[address] Patient sees Dr. Enrique Vigil for primary care and obtains medications from [facility]. Patient reports sometimes he picks up his medications and sometimes they are delivered to his home. Patient uses a wheelchair for ambulation and has an adjustable bed base. Patient does not have Advance Directives in the EMR but states if he were to set up DPOA-HC he would want to designate his son even though he is under the age of eighteen. Patient receives Home Health services through [facility]. Patient states Chelyan assists with his catheter and also takes his vitals weekly. Patient plans to return home upon discharge and continue with Chelyan. Patient states he is going home today. CALIXTO spoke with RN, Ana who advised patient will not be discharged today. CALIXTO faxed updates and made contact with [facility]. CALIXTO called patient's mother Fatuma (ph#[phone]) and left a message. CALIXTO to continue to follow.
[2019-10-26] MEDS ORDERED: NORVASC 10MG10 MG PO (14:23)
[2019-10-26] MEDS ORDERED: COREG 25MG25 MG/TAB PO (14:24)
[2019-10-26] MEDS ORDERED: CATAPRES 0.1MG0.1 MG PO (14:25)
--- NOTE | 2019-10-26 20:00 | NUR ---
Patient resting in bed with eyes shut; awakens to speech. Slighly drowsy but oriented to time and place and follows verbal commands. Assisted with luis-care and repositioning. Complaining of generalized and lower back pain. Will administer PO pain meds.
[2019-10-27] VITALS (463 sets, daily range): BP systolic 115–131; BP diastolic 74–88; PULSE 79–96; TEMP 98–98.1; O2SAT 90–100
--- NOTE | 2019-10-27 05:53 | NUR ---
Glucose 57 this am. Drinking orange juice at this time. Pt alert per usual. Will re-check blood glucose after finishing juice.
--- NOTE | 2019-10-27 13:45 | NUR ---
Call placed to [facility] request placed with RN for recent culture and sensitivity. Faxing to ICU.
[2019-10-27] MEDS ORDERED: LANTUS SOLOS100 U/ML SQ (14:25)
--- NOTE | 2019-10-27 16:30 | NUR ---
dc home acc by family member via wc
== END 2019-10-27 16:30 | disposition home or self-care (01) | DRG 312 ==
LOC: COL.ER 00:14 → ICU 03:17
PROVIDERS: Emergency Medicine; ADMIT Internal Medicine Nephrology
PROC: 5A1D70Z Performance of Urinary Filtration, Intermittent, Less than 6 Hours Per Day (ICD-10-PCS; principal; 2019-10-26)
DX: R55 Syncope and collapse (principal); N18.6 End stage renal disease; I12.0 Hypertensive chronic kidney disease with stage 5 chronic kidney disease or end stage renal disease; N39.0 Urinary tract infection, site not specified; E10.22 Type 1 diabetes mellitus with diabetic chronic kidney disease; G89.29 Other chronic pain; I95.9 Hypotension, unspecified; K21.9 Gastro-esophageal reflux disease without esophagitis; F32.9 Major depressive disorder, single episode, unspecified; D63.1 Anemia in chronic kidney disease; H54.8 Legal blindness, as defined in USA; F17.210 Nicotine dependence, cigarettes, uncomplicated; E87.70 Fluid overload, unspecified; R94.31 Abnormal electrocardiogram [ECG] [EKG]; E10.42 Type 1 diabetes mellitus with diabetic polyneuropathy; Z99.2 Dependence on renal dialysis; Z86.14 Personal history of Methicillin resistant Staphylococcus aureus infection; Z79.4 Long term (current) use of insulin; Z79.82 Long term (current) use of aspirin; Z79.891 Long term (current) use of opiate analgesic; Z88.0 Allergy status to penicillin; Z88.1 Allergy status to other antibiotic agents; T40.605A Adverse effect of unspecified narcotics, initial encounter
CPT/HCPCS: A4216; J0456; J0696; J1644; J1815; J2310; J7030; J7050

== ENCOUNTER → 2019-11-15 | Outpatient (CLI) | payer MEDICARE, MEDICAID | LOC: BHSO 10:29 | DX: F06.32 Mood disorder due to known physiological condition with major depressive-like episode (principal) | CPT/HCPCS: G0463 ==

== ENCOUNTER 2019-11-24 12:09 | Day surgery (SDC) | payer MEDICARE, MEDICAID ==
[~2019-11-24] VITALS: Ht 177.8 cm; Wt 74.0 kg
[2019-11-24] MEDS ORDERED: COREG 25MG25 MG/TAB PO (12:56)
[2019-11-24] MEDS ORDERED: APRESOLINE50 MG PO (12:56)
[2019-11-24] MEDS ORDERED: SENNA-LAX8.6 MG PO (12:57)
[2019-11-24 13:54] VITALS: BP 145/87; PULSE 91; TEMP 98.1
--- NOTE | 2019-11-24 14:00 | NUR ---
Surgeries running behind schedule. Notified pt with estimated time of surgery. Pt agrees with plan and expresses understanding.
--- NOTE | 2019-11-24 15:00 | NUR ---
Pt states Tylenol helped DAMICO and scopalamine patch got rid of his nausea.
--- NOTE | 2019-11-24 15:50 | NUR ---
Pt indicating that his back pain is increasing, and he states that he usually taked Dilaudid q 4 hours and last dose taken at 1000. This RN received order from LOT TECHNICIAN for one time dose of 2 mg Dilaudid tab. Also updated pt with expected time of surgery. Pt appreciative and agrees with plan.
--- NOTE | 2019-11-24 16:41 | NUR ---
Drained approxiamtely 550 ml of clear yellow urine from catheter bag.
--- NOTE | 2019-11-24 17:09 | NUR ---
Pt states that the Dilaudid seems to be working "a little bit."
[2019-11-24 18:32] VITALS: BP 153/100; PULSE 88
--- NOTE | 2019-11-24 18:32 | NUR ---
Pt arrived backed to [facility], and he states that he feels "weak." Pt awake and oriented, and he states that he doesn't have any pain at this time, and he denies any nausea at this time. VSS at this time - BP elevated but DISPATCH[facility]RE[facility] DEPARTMENT doesn't want to treat (did treat in OR).
[2019-11-24 18:45] VITALS: BP 161/94; PULSE 88; TEMP 98.2
--- NOTE | 2019-11-24 18:45 | NUR ---
Pt sitting up comfortably in bed and eating crackers and drinking water. Pt denies pain or nausea at this time. Pt states that he is ready to go home, and he meets criteria for discharge.
[2019-11-24 19:00] VITALS: BP 172/94; PULSE 90
--- NOTE | 2019-11-24 19:00 | NUR ---
Reviewed discharge information with patient and health personal care service provider (Esperanza) including signs/symptoms to watch for, A/V fistula awareness, educational information. This RN read information to pt, and he expressed understanding with tell back. Bruit heard and thrill felt in AV fistula, and educated pt on how to check for thrill. Pt agrees and successfully felt thrill. VSS. Pt to call office tomorrow to make f/u appointment. Incision is CDI and without redness or exudate.
== END 2019-11-24 19:25 | disposition home or self-care (01) ==
LOC: SDCO 12:09
DX: I12.0 Hypertensive chronic kidney disease with stage 5 chronic kidney disease or end stage renal disease (principal); E10.22 Type 1 diabetes mellitus with diabetic chronic kidney disease; N18.6 End stage renal disease; I73.9 Peripheral vascular disease, unspecified; I10 Essential (primary) hypertension; K21.9 Gastro-esophageal reflux disease without esophagitis; F17.210 Nicotine dependence, cigarettes, uncomplicated; G89.29 Other chronic pain; N31.9 Neuromuscular dysfunction of bladder, unspecified; D64.9 Anemia, unspecified; D69.6 Thrombocytopenia, unspecified; Z86.73 Personal history of transient ischemic attack (TIA), and cerebral infarction without residual deficits; Z79.82 Long term (current) use of aspirin; Z79.01 Long term (current) use of anticoagulants; Z79.51 Long term (current) use of inhaled steroids; Z79.02 Long term (current) use of antithrombotics/antiplatelets; Z79.4 Long term (current) use of insulin; Z89.511 Acquired absence of right leg below knee; Z86.14 Personal history of Methicillin resistant Staphylococcus aureus infection
CPT/HCPCS: J0360; J0690; J1644; J2704; J3010; J7030

== ENCOUNTER 2019-12-14 10:35 | Outpatient (CLI) | payer MEDICARE, MEDICAID ==
[2019-12-14] VITALS (7 sets, daily range): BP systolic 149–188; BP diastolic 88–112; PULSE 89–99; TEMP 97.5
[~2019-12-14] VITALS: Ht 177.8 cm; Wt 70.0 kg
[2019-12-14] MEDS ORDERED: LANTUS SOLOS100 U/ML SQ (12:17)
--- NOTE | 2019-12-14 12:54 | NUR ---
SEE MERGE DOCUMENTATION FOR MEDICATION ADMINISTRATION TIMES AND INTRA/POST PROCEDURE SEDATION ASSESSMENTS.
--- NOTE | 2019-12-14 14:00 | NUR ---
pt to eu 10 via bed from can labeler. Pt is blind, call light in hands, side rails up x2. No c/o or requests at this time, bandaid to upper left arm is clean and dry. pt dozes in bed, supra cubic cath to DD.
--- NOTE | 2019-12-14 14:45 | NUR ---
pt declined meal or juice, did take jello. states has h/a. other assessment unchanged, eyes closed most of time resting.
--- NOTE | 2019-12-14 15:15 | NUR ---
pt sits on side of bed, reviewed discharge inst. on site care, does have dialysis tomorrow. pt assisted dressing prostesis on right leg. Up in chair, int dc'd intact, family member here at 1610 for discharge via own w/c
== END 2019-12-14 16:10 | disposition home or self-care (01) ==
LOC: COL.CAR 10:35
DX: T82.858A Stenosis of other vascular prosthetic devices, implants and grafts, initial encounter (principal); N18.6 End stage renal disease; Z99.2 Dependence on renal dialysis; F17.210 Nicotine dependence, cigarettes, uncomplicated; Z88.1 Allergy status to other antibiotic agents
CPT/HCPCS: J1644; J2250; J3010; J7050; Q9967

== ENCOUNTER 2020-04-20 09:18 | Outpatient (CLI) | payer MEDICARE, MEDICAID ==
[2020-04-20] VITALS (9 sets, daily range): BP systolic 135–197; BP diastolic 46–106; PULSE 81–92; TEMP 97.8
[~2020-04-20] VITALS: Ht 177.8 cm; Wt 73.7 kg
[~2020-04-20 09:18] MED LIST changes: +LAMICTAL 100MG100 MG PO
--- NOTE | 2020-04-20 10:49 | NUR ---
SEE MERGE DOCUMENTATION FOR MEDICATION ADMINISTRATION AND INTRA/POST PROCEDURE SEDATION ASSESSMENTS.
== END 2020-04-20 15:37 | disposition home or self-care (01) ==
LOC: COL.CAR 09:18
DX: T82.858A Stenosis of other vascular prosthetic devices, implants and grafts, initial encounter (principal); E11.22 Type 2 diabetes mellitus with diabetic chronic kidney disease; N18.6 End stage renal disease; Z99.2 Dependence on renal dialysis; Z86.73 Personal history of transient ischemic attack (TIA), and cerebral infarction without residual deficits; Z88.1 Allergy status to other antibiotic agents; Z79.4 Long term (current) use of insulin; Z79.82 Long term (current) use of aspirin; Z79.51 Long term (current) use of inhaled steroids; F17.210 Nicotine dependence, cigarettes, uncomplicated
CPT/HCPCS: J1644; J2250; J3010

== ENCOUNTER → 2020-06-30 | Outpatient (CLI) | payer MEDICARE, MEDICAID | LOC: BHSO 09:38 | DX: F06.32 Mood disorder due to known physiological condition with major depressive-like episode (principal) | CPT/HCPCS: G0463 ==

== ENCOUNTER 2020-10-25 10:21 | Outpatient (CLI) | payer MEDICARE, MEDICAID ==
[~2020-10-25] VITALS: Ht 177.8 cm; Wt 88.4 kg
[2020-10-25] VITALS (9 sets, daily range): BP systolic 151–186; BP diastolic 81–106; PULSE 72–93; TEMP 98.5
[2020-10-25] MEDS ORDERED: IMODIUM MULTI-S1 TAB PO (11:02)
[2020-10-25] MEDS ORDERED: VIIBRYD20 MG PO (11:03)
[2020-10-25] MEDS ORDERED: VITAMIN D31000 I1 PO (11:05)
[2020-10-25] MEDS ORDERED: LYRICA 25MG CAP25 MG PO (11:06)
[2020-10-25] MEDS ORDERED: ATARAX 25MG25 MG/TAB PO (11:06)
[2020-10-25] MEDS ORDERED: CARAFATE 1GM1 G PO (11:07)
[2020-10-25] MEDS ORDERED: COLACE 100100 MG/CAP PO (11:07)
[2020-10-25] MEDS ORDERED: ERY-TAB250 MG PO (11:08)
[2020-10-25] MEDS ORDERED: FOLIC ACID 11 MG/TA1 PO (11:08)
[2020-10-25] MEDS ORDERED: LASIX 40MG TABL40 MG PO (11:09)
[2020-10-25] MEDS ORDERED: HYDRALAZINE HC100 MG PO (11:10)
[2020-10-25] MEDS ORDERED: ROBAXIN 75750 MG/TAB PO (11:10)
[2020-10-25] MEDS ORDERED: PROTONIX 40MG T40 MG PO (11:11)
[2020-10-25] MEDS ORDERED: CRESTOR40 MG PO (11:12)
[2020-10-25] MEDS ORDERED: LAMICTAL 100MG100 MG PO (11:12)
[2020-10-25] MEDS ORDERED: SEROQUEL300 MG PO (11:12)
[2020-10-25] MEDS ORDERED: LINZESS290CAP PO (11:13)
[2020-10-25] MEDS ORDERED: MYRBETR50MG PO (11:13)
[2020-10-25] MEDS ORDERED: DILAUDID 2MG TAB2 MG PO (11:15)
[2020-10-25] MEDS ORDERED: FENTANYL 25 MCG TD (11:16)
[2020-10-25] MEDS ORDERED: NOVOLOG 100U100 U/M1 SQ (11:17)
--- NOTE | 2020-10-25 13:05 | NUR ---
SEE MERGE DOCUMENTATION FOR MEDICATION ADMINISTRATION TIMES AND INTRA/POST PROCEDURE SEDATION ASSESSMENTS.
--- NOTE | 2020-10-25 14:00 | NUR ---
Report from Clayton SINGLETON. Transferred to EU by bed. Drowsy, but oriented. Left fistula CD&I with bandaid over sutures. VSS
--- NOTE | 2020-10-25 16:18 | NUR ---
INT discontinued intact. Discharge instructions given.
--- NOTE | 2020-10-25 16:42 | NUR ---
Transferred to private car by personal wc
== END 2020-10-25 16:43 | disposition home or self-care (01) ==
LOC: COL.CAR 10:21
DX: T82.858A Stenosis of other vascular prosthetic devices, implants and grafts, initial encounter (principal); E11.22 Type 2 diabetes mellitus with diabetic chronic kidney disease; N18.6 End stage renal disease; Z99.2 Dependence on renal dialysis; Z89.511 Acquired absence of right leg below knee; Z86.73 Personal history of transient ischemic attack (TIA), and cerebral infarction without residual deficits; Z88.1 Allergy status to other antibiotic agents; Z88.8 Allergy status to other drugs, medicaments and biological substances; Z79.4 Long term (current) use of insulin; Z79.82 Long term (current) use of aspirin; F17.210 Nicotine dependence, cigarettes, uncomplicated
CPT/HCPCS: J1644; J2250; J3010; Q9967

== ENCOUNTER 2021-01-27 12:05 | Emergency (ER) | payer MEDICARE, MEDICAID ==
[~2021-01-27] VITALS: Ht 177.8 cm; Wt 90.0 kg
[~2021-01-27 12:05] MED LIST changes: +CARAFATE 1GM1 G PO; +ERY-TAB250 MG PO; +FENTANYL 25 MCG TD; +IMODIUM MULTI-S1 TAB PO; +LINZESS290CAP PO; +LYRICA 25MG CAP25 MG PO; +SEROQUEL300 MG PO; +VIIBRYD20 MG PO; +VITAMIN D31000 I1 PO
[2021-01-27 12:08] VITALS: BP 125/76; PULSE 127; TEMP 97.7
[2021-02-05] MEDS ORDERED: PROAMATINE10 MG PO (17:00)
== END 2021-01-27 14:55 | disposition left against medical advice (07) ==
LOC: COL.ER 12:05
PROVIDERS: Family Medicine
DX: E11.22 Type 2 diabetes mellitus with diabetic chronic kidney disease (principal); I12.0 Hypertensive chronic kidney disease with stage 5 chronic kidney disease or end stage renal disease; N18.6 End stage renal disease; M54.9 Dorsalgia, unspecified; G89.29 Other chronic pain; E86.0 Dehydration; F17.210 Nicotine dependence, cigarettes, uncomplicated; Z99.2 Dependence on renal dialysis; Z86.73 Personal history of transient ischemic attack (TIA), and cerebral infarction without residual deficits; Z90.89 Acquired absence of other organs; Z88.0 Allergy status to penicillin; Z79.4 Long term (current) use of insulin
CPT/HCPCS: J1200; J1630

== ENCOUNTER 2021-02-06 07:47 | Outpatient (CLI) | payer MEDICARE, MEDICAID ==
[2021-02-06] VITALS (7 sets, daily range): BP systolic 97–130; BP diastolic 55–84; PULSE 81–98; TEMP 97.4
[~2021-02-06] VITALS: Ht 177.8 cm; Wt 91.9 kg
[~2021-02-06 07:47] MED LIST changes: +PROAMATINE10 MG PO
--- NOTE | 2021-02-06 12:10 | NUR ---
DC instructions were reviewed with pt, he expresses understanding. He is assisted to dress and transfer into wheelchair. IV DC'd with catheter intact. 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 Dressing over fistula has remained clean, dry and intact. Bruit palpable.
== END 2021-02-06 12:10 | disposition home or self-care (01) ==
LOC: COL.CAR 07:47
DX: T82.858A Stenosis of other vascular prosthetic devices, implants and grafts, initial encounter (principal); N18.9 Chronic kidney disease, unspecified; E11.22 Type 2 diabetes mellitus with diabetic chronic kidney disease; I12.9 Hypertensive chronic kidney disease with stage 1 through stage 4 chronic kidney disease, or unspecified chronic kidney disease; F17.210 Nicotine dependence, cigarettes, uncomplicated; Z20.822 Contact with and (suspected) exposure to COVID-19; Z99.2 Dependence on renal dialysis; Z90.89 Acquired absence of other organs; Z88.0 Allergy status to penicillin; Z88.1 Allergy status to other antibiotic agents; Z79.4 Long term (current) use of insulin; Z79.899 Other long term (current) drug therapy; Z79.891 Long term (current) use of opiate analgesic
CPT/HCPCS: C1725; C1894; J1644; J2250; Q9967

== ENCOUNTER → 2021-05-05 | Outpatient (CLI) | payer MEDICARE, MEDICAID ==
[2021-05-05 15:51] LABS: COLLECTION METHOD CATHETER
[2021-05-05 16:03] LABS: BUDDING YEAST Present /hpf; PH 6 (5-8); SQUAMOUS EPITHELIAL 0-2 /hpf; URINE APPEARANCE Cloudy; URINE BACTERIA Rare /hpf; URINE BILIRUBIN Negative (NEGATIVE); URINE BLOOD 3+ (NEGATIVE); URINE COLOR Yellow; URINE GLUCOSE Negative (NEGATIVE); URINE KETONE Negative (NEGATIVE); URINE LEUKOCYTE ESTERASE 3+ (NEGATIVE); URINE NITRATE Negative (NEGATIVE); URINE PROTEIN(semi-quant) 3+ (NEGATIVE); URINE UROBILINOGEN Negative (NEGATIVE)
== END ==
LOC: ZCOL.LAB 11:47
PROVIDERS: Urology
DX: Z93.50 Unspecified cystostomy status (principal)

== ENCOUNTER → 2021-07-03 | Outpatient (CLI) | payer MEDICARE, MEDICAID | LOC: COL.VAS 14:21 | DX: T82.898A Other specified complication of vascular prosthetic devices, implants and grafts, initial encounter (principal); Z99.2 Dependence on renal dialysis ==

== ENCOUNTER 2021-07-10 13:50 | Emergency (ER) | payer MEDICARE, MEDICAID ==
[~2021-07-10] VITALS: Ht 177.8 cm; Wt 100.0 kg
[2021-07-10 13:50] VITALS: TEMP 97.5
[2021-07-10 15:21] LABS: BASO # 0.1 (0.0-0.2); BASO % 0.9 % (0.0-2.0); EOS # 0.4 (0.0-0.7); EOS % 3.4 % (0-4.0); GRAN # 8.2 (1.4-6.5); GRAN % 77.3 % (42.2-75.2); HEMATOCRIT 44.8 % (42.0-52.0); HEMOGLOBIN 15.5 g/dl (13.5-18.0); LYMPH # 1.3 (1.2-3.4); LYMPH % 11.9 % (20.0-51.0); MEAN CELL VOLUME 89 fl (80.0-100.0); MEAN CORPUSCULAR HEMOGLOBIN 31 pg (27.0-31.0); MEAN CORPUSCULAR HGB CONC 35 g/dl (33.0-37.0); MEAN PLATELET VOLUME 10.2 fl (7.4-10.4); MONO # 0.7 (0.1-0.6); MONO % 6.1 % (1.7-9.3); PLATELET COUNT 176 K/mm3 (130-400); RED BLOOD COUNT 5.02 M/mm3 (4.20-5.60); REDCELL DISTRIBUTION WIDTH-CV 13.2 % (11.5-14.5)
[2021-07-10 15:32] LABS: ALBUMIN 4.3 gm/dL (3.5-5.0); BILIRUBIN,TOTAL 0.6 mg/dL (0.0-1.0); CALCIUM 9.7 mg/dL (8.4-10.2); CREATININE, serum 4.75 (0.66-1.25); TOTAL PROTEIN 7.7 gm/dL (6.4-8.2)
[2021-07-10 22:50] VITALS: BP 156/91; PULSE 94
[2021-07-11 08:03] LABS: TRICYCLIC ANTIDEPRESS URINE NEGATIVE
== END 2021-07-11 13:07 | disposition left against medical advice (07) ==
LOC: COL.ER 13:50
PROVIDERS: Personal Emergency Response Attendant
DX: E11.22 Type 2 diabetes mellitus with diabetic chronic kidney disease (principal); I12.9 Hypertensive chronic kidney disease with stage 1 through stage 4 chronic kidney disease, or unspecified chronic kidney disease; N18.9 Chronic kidney disease, unspecified; R41.82 Altered mental status, unspecified; G89.29 Other chronic pain; K21.9 Gastro-esophageal reflux disease without esophagitis; Z79.4 Long term (current) use of insulin; Z79.899 Other long term (current) drug therapy
CPT/HCPCS: J1644; J1815; J2405; J2550; J7030

== ENCOUNTER → 2021-08-01 | Outpatient (CLI) | payer MEDICARE, MEDICAID | LOC: ZCOL.LAB 15:54 | DX: L02.91 Cutaneous abscess, unspecified (principal) ==

== ENCOUNTER 2022-09-05 14:12 | Emergency (ER) | payer MEDICARE, MEDICAID ==
[~2022-09-05] VITALS: Ht 180.3 cm; Wt 77.3 kg
[2022-09-05 14:16] VITALS: TEMP 97.8
[2022-09-05 14:31] LABS: BASO # 0.1 K/mm3 (0.0-0.2); BASO % 1.6 % (0.0-2.0); EOS % 0.2 % (0.0-4.0); GRAN % 81.2 % (42.2-75.2); LYMPH # 0.5 K/mm3 (1.2-3.4); LYMPH % 10.4 % (20.0-51.0); MEAN CELL VOLUME 91 fl (80.0-100.0); MEAN CORPUSCULAR HGB CONC 33 g/dl (33.0-37.0); MEAN PLATELET VOLUME 10.7 fl (7.4-10.4); MONO # 0.3 K/mm3 (0.1-0.6); MONO % 6.4 % (1.7-9.3); PLATELET COUNT 155 K/mm3 (130-400); RED BLOOD COUNT 2.94 M/mm3 (4.20-5.60); REDCELL DISTRIBUTION WIDTH-CV 15.1 % (11.5-14.5)
[2022-09-05 14:32] LABS: HEMATOCRIT 26.7 % (42.0-52.0); HEMOGLOBIN 8.8 g/dl (13.5-18.0); MEAN CORPUSCULAR HEMOGLOBIN 30 pg (27-31)
[2022-09-05 15:03] LABS: ALBUMIN 3.5 gm/dL (3.5-5.0); BILIRUBIN,TOTAL 0.6 mg/dL (0.2-1.2); CALCIUM 8.5 mg/dL (8.4-10.2); CREATININE, serum 12.73 mg/dL (0.72-1.25); POTASSIUM 3.9 mmol/L (3.5-4.5); TOTAL PROTEIN 6.6 gm/dL (6.2-8.1)
[2022-09-05 15:13] LABS: TROPONIN-I 0.06 ng/mL (0.00-0.033)
[2022-09-05 23:00] VITALS: BP 131/90; PULSE 105
== END 2022-09-05 23:22 | disposition short-term general hospital (02) ==
LOC: COL.ER 14:12
PROVIDERS: Emergency Medicine
DX: E11.22 Type 2 diabetes mellitus with diabetic chronic kidney disease (principal); N18.6 End stage renal disease; G93.40 Encephalopathy, unspecified; F17.290 Nicotine dependence, other tobacco product, uncomplicated; Z20.822 Contact with and (suspected) exposure to COVID-19
CPT/HCPCS: J0696; J1630; J2270; J2310